=== PATIENT | female | born 1955 | race Caucasian/White ===

== ENCOUNTER 2025-09-03 11:56 | Inpatient (IN) ==
--- NOTE | 2025-09-03 12:15 | Emergency Department Note ---
Impression & Plan Occlusion of central line, Anemia ED Provider Note NAME: FÁTIMA EDWARDS AGE: 70 SEX: F : 1955 ARRIVES VIA: Ambulance INFORMANT: Patient ED PROVIDER(S): Quinn Elliott DO CHIEF COMPLAINT: line won't flush HPI: Patient is a 70-year-old female who presents to the ER with extensive past medical history who receives TPN through her central line from [facility]. 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 She comes have been having trouble with her central line and the red and purple lines will not flush and consequently cannot give her the TPN which she needs. She denies all other complaints. No headache or change in vision. No new belly pain. No nausea or vomiting. ADDITIONAL HISTORY OBTAINED: Per HPI Chronic Medical/Social Conditions Affecting Care: Per HPI PAST MEDICAL HISTORY:See Below PAST SURGICAL HISTORY:See Below FAMILY HISTORY:See Below SOCIAL HISTORY:See Below HOME MEDICATIONS:See Below ALLERGIES:See Below VITALS:See Below PHYSICAL EXAMINATION: GENERAL: Sitting up in bed, alert, morbidly obese, disheveled EYE EXAM: normal conjunctiva. PERRL and EOM's grossly intact. OROPHARYNX: n mucous membranes are moist LUNGS: Clear to auscultation. Normal chest wall mechanics CHEST: Central access and right upper chest wall HEART: no murmurs, S1 normal and S2 normal ABDOMEN: abdomen soft, non-tender, draining fistula/ostomy left mid abdomen, normo-active bowel sounds, no masses, no rebound or guarding. UPPER EXTREMITIES: upper extremities are grossly normal. LOWER EXTREMITIES: No pitting edema. NEURO EXAM: Normal sensorium, cranial nerves II-XII grossly intact, normal speech, no gross weakness of arms, no gross weakness of legs. MEDICAL DECISION MAKING: Patient is a morbidly obese 70-year-old female who presents ER referred in as she is TPN dependent and the ports are not working and they have been having trouble with them at the facility. She is unclear how long they have been in place but notes that they have been placed at [facility]. IV was established and blood work was obtained. Labs show no significant cytosis. Mild anemia at 9.7. BMP with mild hyponatremia 133. Pro-Tavo was normal. She has no belly pain. UA with 0-5 white cells but did have some epithelial cells to suggest infection. Cathflo was placed in both ports for 2 hours via IV team. Following this they are able to flush but are still sluggish. Discussed case with the hospitalist for further evaluation management treatment. Patient will need to be evaluated if this does not improve by vascular tomorrow. Consults/Care Managements Discussions: Per MDM Triage Nursing notes reviewed. Limited review of prior medical records performed Vital Signs: reviewed and remarkable for no significant abnormalities Differential diagnosis: Differential diagnoses includes but is not limited to gastritis, peptic ulcer disease, GERD, gallbladder disease, pancreatitis, small bowel obstruction, appendicitis, diverticulitis, hernia, urinary tract infection, torsion, [/ectopic (if female)], perforation, trauma, infectious. ER treatment provided: See below Diagnostics interpreted by me include EKG and cardiac monitoring as listed below: -Cardiac Monitoring: An order was placed for continuous cardiac monitoring. The monitor shows a rate of 80 with sinus rhythm. -ECG: None -Laboratory studies:Interpreted by me as stated above in MDM and shown below. Imaging studies: Xrays: As interpreted by me: Portable AP upright 1 view of the chest shows central catheter in IVC CTs show: None Procedures: None Critical Care: None Past Med/Surg History Problem List (Updated 09/03/25 @ 17:10 by Quinn Elliott DO) Anemia (Acute) Occlusion of central line (Acute) Medical History Mood disorder Paroxysmal A-fib Intra-abdominal abscess Enterocutaneous fistula HFrEF (heart failure with reduced ejection fraction) Surgical History H/O ventral hernia repair Social History Smoking Status: Never smoker Feels Safe at Home: Yes Allergies Allergies Allergy/AdvReac Type Severity Reaction Status Date / Time piperacillin [From Zosyn] Allergy Unknown Verified 09/03/25 15:59 tazobactam [From Zosyn] Allergy Unknown Verified 09/03/25 15:59 Home Meds Home Medications Medication Instructions Recorded Confirmed acetaminophen 325 mg tablet 650 mg PO Q4 PRN Mild Pain. 09/03/25 09/03/25 apixaban 5 mg tablet (Eliquis) 5 mg PO BID 09/03/25 09/03/25 famotidine 20 mg tablet 20 mg PO QAM 09/03/25 09/03/25 loperamide 2 mg capsule 4 mg PO TID 09/03/25 09/03/25 multivitamin with minerals 1 tab PO QAM 09/03/25 09/03/25 (Multiple Vitamin-Minerals tablet) octreotide acetate 100 mcg/mL 100 mcg IV TID 09/03/25 09/03/25 injection solution sertraline 100 mg tablet 100 mg PO QAM 09/03/25 09/03/25 simethicone 80 mg chewable tablet 80 mg PO Q6 PRN 09/03/25 09/03/25 indigestion/flatulence sodium 35 mEq-potassium 20 mEq-mag 2,000 ml IV .AFTERNOON 09/03/25 09/03/25 5 mEq/20 oT-ozpdqks-dxmopnq-acet IV (TPN Electrolytes) Results & Data (ED) Vital Signs Vital Signs - 24 hr 09/03/25 12:06 09/03/25 12:18 09/03/25 12:30 Temperature 36.9 C Temperature Source Oral Pulse Rate 75 71 73 Pulse Rate [Apical] Pulse Rate from SpO2 Sensor 73 Pulse Rhythm Regular Pulse Strength Normal Respiratory Rate 18 19 Respiratory Effort / Characteristics Non-Labored Respiratory Depth Normal Respiratory Pattern Regular Blood Pressure 141/76 H 141/76 H Blood Pressure [Right Arm] Blood Pressure Mean 97 97 Blood Pressure Mean [Right Arm] Blood Pressure Position Lying Pulse Oximetry 95 95 Oxygen Delivery Method Room Air Sepsis Recent Fever Within 48 Hours Yes Sepsis New/Unexplained Change in Mental Status No Sepsis Action Taken by Nursing No Action Required 09/03/25 13:00 09/03/25 13:23 09/03/25 13:30 Temperature Temperature Source Pulse Rate 70 70 Pulse Rate [Apical] Pulse Rate from SpO2 Sensor 70 70 Pulse Rhythm Pulse Strength Respiratory Rate 18 18 Respiratory Effort / Characteristics Respiratory Depth Respiratory Pattern Blood Pressure 123/75 119/58 L Blood Pressure [Right Arm] Blood Pressure Mean 91 78 Blood Pressure Mean [Right Arm] Blood Pressure Position Pulse Oximetry 98 96 95 Oxygen Delivery Method Sepsis Recent Fever Within 48 Hours Sepsis New/Unexplained Change in Mental Status Sepsis Action Taken by Nursing 09/03/25 14:00 09/03/25 15:00 09/03/25 16:08 Temperature Temperature Source Pulse Rate 74 81 Pulse Rate [Apical] 74 Pulse Rate from SpO2 Sensor 73 Pulse Rhythm Pulse Strength Respiratory Rate 19 20 Respiratory Effort / Characteristics Respiratory Depth Respiratory Pattern Blood Pressure 110/68 Blood Pressure [Right Arm] 121/78 Blood Pressure Mean 82 Blood Pressure Mean [Right Arm] 92 Blood Pressure Position Pulse Oximetry 95 96 Oxygen Delivery Method Room Air Sepsis Recent Fever Within 48 Hours Sepsis New/Unexplained Change in Mental Status Sepsis Action Taken by Nursing Laboratory Data 09/03/25 Unknown 09/03/25 Unknown Lab Results 09/03/25 09/03/25 Range/Units 16:30 Unknown WBC 5.84 (4.8-10.8) K/ul RBC 3.17 L (4.20-5.40) M/uL Hgb 9.7 L (12.0-16.0) g/dL Hct 29.1 L (37.0-47.0) % MCV 91.8 (80.0-100.0) fL MCH 30.6 (25.0-34.0) pg MCHC 33.3 (32.0-36.0) g/dL RDW Std Deviation 41.2 (36.4-46.3) fL RDW Coeff of Hedy 12.2 (11.5-14.5) % Plt Count 212 (130-400) K/uL MPV 10.3 (9.4-12.4) fL Immature Gran % (Auto) 0.2 % Neut % (Auto) 76.5 % Lymph % (Auto) 16.6 % Ware % (Auto) 5.5 % Eos % (Auto) 0.7 % Baso % (Auto) 0.5 % Neut # (Auto) 4.47 (1.40-6.50) K/uL Lymph # (Auto) 0.97 L (1.20-3.40) K/uL Ware # (Auto) 0.32 (0.11-0.59) K/uL Eos # (Auto) 0.04 (0.00-0.50) K/uL Baso # (Auto) 0.03 (0.00-0.20) K/uL Immature Gran # (Auto) 0.01 (0.01-0.20) K/uL Sodium 133 L (136-145) mmol/L Potassium 4.1 (3.5-5.1) mmol/L Chloride 100 (98-107) mmol/L Carbon Dioxide 25 (21-32) mmol/L Anion Gap 8 (3-11) BUN 56 H (6-23) mg/dl Creatinine 1.41 H (0.6-1.2) mg/dl Est Cr Clr Drug Dosing 49.7 ml/min eGFR 40.38 BUN/Creatinine Ratio 39.7 H (10-20) Glucose 94 (70-99(Fasting)) mg/dl Calcium 8.7 (8.6-10.3) mg/dl Procalcitonin 0.29 (0-0.5) ng/ml Urine Color Dark Yellow Urine Appearance Cloudy A (Clear) Urine pH 5.5 (4.5-7.5) Ur Specific Farrell 1.019 (1.000-1.030) Urine Protein 1+ H (Negative) Urine Glucose (UA) Negative (Negative) Urine Ketones Negative (Negative) Urine Blood 3+ H (Negative) Urine Nitrite Negative (Negative) Urine Bilirubin Negative (Negative) Urine Urobilinogen Negative (Negative) Ur Leukocyte Esterase 1+ H (Negative) Urine WBC (Auto) 0-5 (0-5) /hpf Urine RBC (Auto) 6-10 H (0-2) /hpf U Hyaline Cast (Auto) 0-2 (0-2) /lpf U Epithel Cells (Auto) 6-10 H (0-2) /hpf Urine Bacteria (Auto) 1+ H (None Seen) Urine Comment Administered Medications Discontinued Medications Alteplase, Recombinant (Alteplase, Recombinant 1 Mg/Ml 2ml Vial) 2 mg INSTIL ONE ONE Stop: 09/03/25 13:50 Last Admin: 09/03/25 14:20 Dose: 2 mg Documented By: WILDER Co-signed By: MALISSA Alteplase, Recombinant (Alteplase, Recombinant 1 Mg/Ml 2ml Vial) 2 mg INSTIL ONE ONE Stop: 09/03/25 13:51 Last Admin: 09/03/25 14:20 Dose: 2 mg Documented By: WILDER Co-signed By: MALISSA Imaging Data Radiologist's Impression: Chest X-Ray 09/03/25 12:09 XR chest 1V portable HISTORY: 70 years-old Female cvc placement ? Acute shortness of breath COMPARISON: None TECHNIQUE: AP view of the chest FINDINGS: Study is mildly rotated to the left. Cardiac silhouette is enlarged. Right subclavian Exhtrf-f-Qflz catheter with distal tip noted in the expected location of the mid to inferior aspect of the SVC. Pulmonary vascular congestion with mild interstitial coarsening. Mild blunting of the lateral costophrenic angles. Bones appear grossly intact. IMPRESSION: Status post placement of a right subclavian Xpbtmj-j-Lnda catheter. No postprocedural pneumothorax identified. ACT 112: Negative or not required by law. The above report was generated using voice recognition software. It may contain grammatical, syntax or spelling errors. Electronically signed by: Joshua Baxter M.D. 09/03/2025 12:37 PM Discharge Plan Visit Data Chief Complaint: Line Placement Stated Complaint: CENTRAL LINE OCCLUDED ED Provider: Quinn Elliott Discharge Problem: Occlusion of central line, Anemia Condition: Fair Forms Stand Alone Forms: [facility] Prescriptions Prescriptions: No Action sertraline 100 mg tablet 100 mg PO QAM famotidine 20 mg tablet 20 mg PO QAM Eliquis 5 mg tablet 5 mg PO BID octreotide acetate 100 mcg/mL solution 100 mcg IV TID loperamide 2 mg capsule 4 mg PO TID acetaminophen 325 mg Tablet 650 mg PO Q4 MDD 3g PRN (Reason: Mild Pain.) Multiple Vitamin-Minerals Tablet 1 tab PO QAM simethicone 80 mg Tablet,Chewable 80 mg PO Q6 PRN (Reason: indigestion/flatulence) TPN Electrolytes 35-20-5 mEq/20 mL Solution 2,000 ml IV .AFTERNOON Rx Instructions: Start rate 58.82 ml/hr for 1 hour. Increase rate to 117.65 ml/hr for 16 hours. Then decrease rate to 58.82 ml/hr. change administration set and filter every 24 hours with bag change. Filter 1.2 micron (with lipids) Referrals Referrals: Vernell Coats [Non-Staff] - Discharge Problem: Occlusion of central line Qualifiers: Encounter type: initial encounter Qualified Code(s): T82.594A - Other mechanical complication of infusion catheter, initial encounter Anemia Qualifiers: Anemia type: unspecified type Qualified Code(s): D64.9 - Anemia, unspecified
--- NOTE | 2025-09-03 12:39 | XRay Report ---
XR chest 1V portable HISTORY: 70 years-old Female cvc placement ? Acute shortness of breath COMPARISON: None TECHNIQUE: AP view of the chest FINDINGS: Study is mildly rotated to the left. Cardiac silhouette is enlarged. Right subclavian Pytazc-v-Igym c atheter with distal tip noted in the expected location of the mid to inferior aspect of the SVC. Pulm onary vascular congestion with mild interstitial coarsening. Mild blunting of the lateral costophreni c angles. Bones appear grossly intact. IMPRESSION: Status post placement of a right subclavian Iaoqkf-y-Kscy catheter. No postprocedural pne umothorax identified. ACT 112: Negative or not required by law. The above report was generated using voice recognition software. It may contain grammatical, syntax o r spelling errors. Electronically signed by: Joshua Baxter M.D. 09/03/2025 12:37 PM
[2025-09-03 13:16] LABS: Hematocrit (blood only) 29.1 % (37.0-47.0); Hemoglobin 9.7 g/dL (12.0-16.0); Immature Granulocytes # (auto) 0.01 K/uL (0.01-0.20); Immature Granulocytes % (auto) 0.2 %; Mean Corpuscular Hemoglobin 30.6 pg (25.0-34.0); Mean Corpuscular Volume 91.8 fL (80.0-100.0); Platelet Count 212 K/uL (130-400); RDW Standard Deviation 41.2 fL (36.4-46.3); Red Blood Count 3.17 M/uL (4.20-5.40); White Blood Count 5.84 K/ul (4.8-10.8)
[2025-09-03 13:33] LABS: Anion Gap 8.0 (3-11); Blood Urea Nitrogen 56.0 mg/dl (6-23); Calcium 8.7 mg/dl (8.6-10.3); Carbon Dioxide 25.0 mmol/L (21-32); Chloride 100.0 mmol/L (98-107); Creatinine Clr Calc Pharmacy 49.7 ml/min; Glucose 94.0 mg/dl (70-99(Fasting)); Potassium 4.1 mmol/L (3.5-5.1); Sodium 133.0 mmol/L (136-145)
[2025-09-03] MEDS: ALTEPLASE, RECOMBINANT 1 MG/ML 2ML VIAL INSTIL ONE ×2 (14:20)
--- NOTE | 2025-09-03 16:04 | History & Physical Report ---
Date of Service September 03, 2025 Assessment & Plan (1) Occlusion of central line: Plan: This is a 70yo F with PMH of HFrEF, paroxysmal A fib on Eliquis, CKD III, h/o ventral hernia repair in December 2024 at outside hospital complicated by small bowel perforation, intraabdominal abscess with wound dehiscence and enterocutaneous fistula on TPN, mood disorder and other medical problems listed below who was sent in from [facility] due to occluded central line. Hemodynamically stable, IV team unable to flush line in ED ED discussed with vascular surgery who will see patient tomorrow for possible port exchange Continue clear liquids for now, gentle fluids, NPO at midnight (2) Intra-abdominal abscess: (3) Enterocutaneous fistula: Plan: Complex surgical history starting with ventral hernia repair in December in December 2024 at outside hospital complicated by small bowel perforation, intraabdominal abscess with wound dehiscence and enterocutaneous fistula on TPN Discussed with [facility], who will evaluate leaking ostomy dressing Follow stool cultures, c diff given increased GI output, low grade fever at [facility] Continue empiric Cefepime, flagyl for now, follow blood culture Recently seen by [facility] [place] - last seen 08/07/25 for management of enterocutaneous fistula. Discussed surgical repair but due to present condition, body habitus and deconditioned state, would want to optimize physician condition before considering further surgery and optimized nutritional state (4) HFrEF (heart failure with reduced ejection fraction): Plan: Appears euvolemic, echo unavailable and not on cardiac meds per review (5) Paroxysmal A-fib: Plan: Rate controlled, beta jie discontinued at [facility]. Hold Eliquis this evening for possible OR tomorrow (6) Mood disorder: Plan: Continue Sertraline DVT Ppx: Eliquis Code status: FULL PCP: Beth Dispo: Admitted to [facility] Patient seen in collaboration with Dr. Abbasi. Please see addendum. I spent a total of 75 minutes coordinating, documenting, and providing care for this patient excluding time spent in the performance of separately billed services or time spent by another provider/QHP. History of Present Illness Chief Complaint: central line problem Primary Care Provider: Charisse Campos MD This is a 70yo F with PMH of HFrEF, paroxysmal A fib on Eliquis, CKD III, h/o ventral hernia repair in December 2024 at outside hospital complicated by small bowel perforation, intraabdominal abscess with wound dehiscence and enterocutaneous fistula on TPN, mood disorder and other medical problems listed below who was sent in from [facility] due to occluded central line. Patient became nauseated last evening and had one vomiting episode. Also endorses a low grade fever last evening. Ostomy site is leaking some, which is new. Tolerates clear liquids and then has additional nutritional support with TPN but staff at [facility] has been having difficulty administering PTN but to clotting of line. No lightheadedness, headache, CP, SOB, abd pain, dysuria. Took AM meds without issue. Patient now following with [facility] - last seen 08/07/25 for management of enterocutaneous fistula. Discussed surgical repair but due to present condition, body habitus and deconditioned state, would want to optimize physician condition before considering further surgery and optimized nutritional state. Allergies Allergy/AdvReac Type Severity Reaction Status Date / Time piperacillin [From Zosyn] Allergy Unknown Verified 09/03/25 15:59 tazobactam [From Zosyn] Allergy Unknown Verified 09/03/25 15:59 Home Medications Medication Instructions Recorded Confirmed Type acetaminophen 325 mg tablet 650 mg PO Q4 PRN Mild Pain. 09/03/25 09/03/25 History apixaban 5 mg tablet (Eliquis) 5 mg PO BID 09/03/25 09/03/25 History famotidine 20 mg tablet 20 mg PO QAM 09/03/25 09/03/25 History loperamide 2 mg capsule 4 mg PO TID 09/03/25 09/03/25 History multivitamin with minerals 1 tab PO QAM 09/03/25 09/03/25 History (Multiple Vitamin-Minerals tablet) octreotide acetate 100 mcg/mL 100 mcg IV TID 09/03/25 09/03/25 History injection solution sertraline 100 mg tablet 100 mg PO QAM 09/03/25 09/03/25 History simethicone 80 mg chewable tablet 80 mg PO Q6 PRN 09/03/25 09/03/25 History indigestion/flatulence sodium 35 mEq-potassium 20 mEq-mag 2,000 ml IV .AFTERNOON 09/03/25 09/03/25 History 5 mEq/20 lR-xuajjvg-fdtlddp-acet IV (TPN Electrolytes) Past Med/Surg History Problem List (Updated 09/03/25 @ 17:10 by Quinn Elliott DO) Anemia (Acute) Occlusion of central line (Acute) Medical History Mood disorder Paroxysmal A-fib Intra-abdominal abscess Enterocutaneous fistula HFrEF (heart failure with reduced ejection fraction) Surgical History H/O ventral hernia repair Social History Smoking Status: Never smoker Feels Safe at Home: Yes Review of Systems Review of Systems: At least ten systems reviewed and negative except as noted in the HPI. Physical Exam Physical Exam: Please see Dr. Abbasi's addendum for physical exam. Results & Data Results & Data Vital Signs (Past 12 Hours) Vital Signs Temp Pulse Pulse Resp BP BP Pulse Ox 09/03/25 15:00 74 20 121/78 96 09/03/25 14:00 74 19 110/68 95 09/03/25 13:30 70 18 119/58 L 95 09/03/25 13:23 96 09/03/25 13:00 70 18 123/75 98 09/03/25 12:30 73 19 141/76 H 95 09/03/25 12:18 71 09/03/25 12:06 36.9 C 75 18 141/76 H 95 O2 Del Method 09/03/25 15:00 Room Air 09/03/25 14:00 09/03/25 13:30 09/03/25 13:23 09/03/25 13:00 09/03/25 12:30 09/03/25 12:18 09/03/25 12:06 Room Air Laboratory Results Short CBC 09/03/25 Range/Units Unknown WBC 5.84 (4.8-10.8) K/ul Hgb 9.7 L (12.0-16.0) g/dL Hct 29.1 L (37.0-47.0) % Plt Count 212 (130-400) K/uL BMP 09/03/25 Unknown Sodium 133 L Potassium 4.1 Chloride 100 Carbon Dioxide 25 BUN 56 H Creatinine 1.41 H Glucose 94 Calcium 8.7 Supervising Physician Co-Signing Physician Notes Patient is a 70-year-old female with history of systolic heart failure, paroxysmal atrial fibrillation on Eliquis, CKD stage III and other medical problems who had ventral hernia repair in December which resulted in complications with bowel perforation, intra-abdominal abscess, wound dehiscence, enterocutaneous fistula currently on TPN presents from nursing home facility for occluded port. Patient admits to have nausea and low-grade fever overnight but currently denies any symptoms. Noted ostomy site leaking. Denies any abdominal pain, chest pain, dyspnea, dizziness. Failed Cathflo use while in ED. Please review HPI for complete details of presentation. I personally reviewed blood work and imaging studies. Noted normocytic anemia, sodium 133, BUN 56, creatinine 1.4, normal procalcitonin. Urinalysis showed positive leukocyte esterase, 1+ bacteria. Physical Exam: Vitals signs as noted above General Appearance: Morbidly obese, no apparent distress Head: normocephalic, Atraumatic Eyes: normal inspection, EOMI Neck: supple, Trachea midline Respiratory/Chest: Normal breath sounds, CTA, No accessory muscle use, + Right chest port Cardiovascular: S1, S2, No murmur Abdomen/GI:Soft, Non tender, Bowel sounds present,+ draining fistula/ostomy, no guarding or rigidity Extremities/Musculoskeletal:normal inspection, 1-2+ edema, chronic venous stasis changes Neurologic/Psych:AAOX3, grossly no focal neurological deficits Skin: normal color, warm Port occlusion Low-grade fever rule out port infection Consulted vascular surgery NPO after midnight Blood cultures obtain Empirically started on cefepime, Flagyl Check stool studies to rule out infection Monitor sodium, renal function Gentle IV fluids Resume TPN as able Hold Eliquis for possible port exchange tomorrow I personally interviewed and examined the patient at bedside. I have reviewed the advanced practitioner's documentation on the date of service referred in note and agree with plan. Patient's care is coordinated with Agustina Abdi PA-C. Please refer to the documentation above for details of patient's presentation a nd for discussion of other issues. I spent a total [id number] coordinating, documenting, and providing care for this patient excluding time spent in the performance of separately billed services or time spent by another provider/QHP.
[2025-09-03 16:40] LABS: Appearance Urine Cloudy (Clear); Bacteria Urine Automated 1+ (None Seen); Cast Urine Automated 0-2 /lpf (0-2); Glucose Urine UA Negative (Negative); WBC Urine Automated 0-5 /hpf (0-5)
[2025-09-03] MEDS: metroNIDAZOLE 500 MG/100 ML BAG IV STA (17:57)
[2025-09-03] MEDS: CEFEPIME 2000MG 2,000 MG/20 ML SYR IV STA (17:58)
[2025-09-03] MEDS ORDERED: SIMETHICONE 80 MG CHEW PO PRN (19:16)
[2025-09-03 20:24] LABS: Cdiff Toxin B Gene (2yr or >) Negative Cdiff Gene (Neg)
[2025-09-03] MEDS: ONDANSETRON INJ 2 MG/ML 2 ML VIAL IV PRN (20:36)
[2025-09-03] MEDS: SODIUM CHLORIDE 0.9% 1,000 ML IV SCH (20:38)
[2025-09-03] MEDS: ACETAMINOPHEN 325 MG TAB PO PRN (20:45)
[2025-09-03] MEDS: METOPROLOL SUCC 25MG EXT REL TAB PO SCH (20:53)
[2025-09-03 20:54] LABS: Adenovirus F 40/41 PCR Not Detected (NotDetected); Campylobacter PCR Not Detected (NotDetected); Enteroaggregative E.coli(EAEC) Not Detected (NotDetected); Shiga-like Toxin E.coli (STEC) Not Detected (NotDetected); Vibrio species PCR Not Detected (NotDetected)
[2025-09-03] MEDS ORDERED: OCTREOTIDE ACETATE 100 MCG/ML VIAL IV SCH (21:00)
[2025-09-03] MEDS: LOPERAMIDE HCL 2 MG CAP PO SCH (21:53)
[2025-09-03] MEDS: OCTREOTIDE ACETATE 100 MCG in SYRINGE 9 ML IV SCH (21:54)
[2025-09-04] MEDS: metroNIDAZOLE 500 MG/100 ML BAG IV SCH (02:36)
[2025-09-04] MEDS: CEFEPIME 2000MG 2,000 MG/20 ML SYR IV SCH (05:33)
[2025-09-04 06:30] LABS: A calco-baum cmplx NotReported Not Detected (NotDetected); Bact fragilis Not Reported Not Detected (NotDetected); Blood Culture Id Panel PCR Panel Negative (NotDetected); C auris Not Reported Not Detected (NotDetected); Calbicans Not Reported Not Detected (NotDetected); Candida glabrata Not Reported Not Detected (NotDetected); Candida krusei Not Reported Not Detected (NotDetected); Cneoformans/gatti Not Reported Not Detected (NotDetected); Cparapsilosis Not Reported Not Detected (NotDetected); Ctropicalis Not Reported Not Detected (NotDetected); E cloacae compx Not Reported Not Detected (NotDetected); Efaecalis Not Reported Not Detected (NotDetected); Efaecium Not Reported Not Detected (NotDetected); Enterobacterales Not Reported Not Detected (NotDetected); Escherichia coli Not Reported Not Detected (NotDetected); H influenzae Not Reported Not Detected (NotDetected); K aerogenes Not Reported Not Detected (NotDetected); Koxytoca Not Reported Not Detected (NotDetected); Kpneumoniae grp Not Reported Not Detected (NotDetected); Lmonocyt Not Reported Not Detected (NotDetected); N meningitidis Not Reported Not Detected (NotDetected); P aeruginosa Not Reported Not Detected (NotDetected); Proteus spp Not Reported Not Detected (NotDetected); Salmonella spp Not Reported Not Detected (NotDetected); Staph lugdunensis Not Reported Not Detected (NotDetected); Staph spp. Not Reported Not Detected (NotDetected); Staphaureus Not Reported Not Detected (NotDetected); Staphepi Not Reported Not Detected (NotDetected); Stenmaltophilia Not Reported Not Detected (NotDetected); Strep agal(GrpB) Not Reported Not Detected (NotDetected); Strep pneum Not Reported Not Detected (NotDetected); Strep pyog (GrpA) Not Reported Not Detected (NotDetected); Strep spp Not Reported Not Detected (NotDetected)
[2025-09-04 07:01] LABS: Hematocrit (blood only) 24.4 % (37.0-47.0); Hemoglobin 8.2 g/dL (12.0-16.0); Immature Granulocytes # (auto) 0.06 K/uL (0.01-0.20); Immature Granulocytes % (auto) 0.4 %; Mean Corpuscular Hemoglobin 31.3 pg (25.0-34.0); Mean Corpuscular Volume 93.1 fL (80.0-100.0); Platelet Count 165 K/uL (130-400); RDW Standard Deviation 41.9 fL (36.4-46.3); Red Blood Count 2.62 M/uL (4.20-5.40); White Blood Count 14.12 K/ul (4.8-10.8)
[2025-09-04 07:35] LABS: Alanine Aminotransferase 16.0 U/L (7-52); Albumin Globulin Ratio 0.5 (0.9-2); Albumin Level 2.6 gm/dl (3.4-5.0); Alkaline Phosphatase 56.0 U/L (34-104); Anion Gap 7.0 (3-11); Bilirubin,Total 1.0 mg/dl (0.2-1.0); Blood Urea Nitrogen 60.0 mg/dl (6-23); Calcium 8.0 mg/dl (8.6-10.3); Carbon Dioxide 25.0 mmol/L (21-32); Chloride 102.0 mmol/L (98-107); Creatinine Clr Calc Pharmacy 35.3 ml/min; Globulin 5.0 gm/dl (2.5-4.0); Glucose 118.0 mg/dl (70-99(Fasting)); Magnesium 1.8 mg/dl (1.7-2.4); Potassium 4.2 mmol/L (3.5-5.1); Sodium 134.0 mmol/L (136-145); Total Protein 7.6 gm/dl (6.0-8.3)
[2025-09-04] MEDS ORDERED: VANCOMYCIN CONSULT ACTIVE PRN (07:53)
[2025-09-04] MEDS ORDERED: DEXTROSE 10% 1,000 ML IV PRN (08:45)
--- NOTE | 2025-09-04 09:04 | Hospitalist Progress Note ---
Date of Service September 04, 2025 Assessment & Plan (1) Gram-positive bacteremia: (2) CLABSI (central line-associated bloodstream infection): Plan: Present on admission (3) Occlusion of central line: (4) Acute renal failure superimposed on stage 3 chronic kidney disease: (5) Acute on chronic anemia: (6) Enterocutaneous fistula: (7) Chronic HFrEF (heart failure with reduced ejection fraction): (8) Paroxysmal A-fib: (9) Mood disorder: (10) NSVT (nonsustained ventricular tachycardia): Plan Patient 70-year-old female presented with occluded central line. Central line required for TPN due to the fact patient had abdominal abscesses and enterocutaneous fistula. Now with positive blood cultures concerning for bacteremia and central line associated bloodstream infection due to her central line that is present on admission Continue cefepime, add vancomycin with positive MRSA screen. Pharmacy consultation for additional vancomycin dosing Consult pharmacy for PPN Vascular surgery updated to bacteremia. Anticipate central line will need to be removed. New central line may not be able to be replaced immediately until blood cultures are clear. Will plan to remove line tomorrow Consult infectious disease for gram-positive bacteremia in the setting of central line Repeat blood cultures after line is removed Monitor hemoglobin Continue other medications as prescribed Increase IV fluids due to acute kidney injury, monitoring for volume overload Monitor electrolytes and renal function No further runs of ventricular tachycardia. Continue beta-jie Admission and Anticipated Discharge Date Admission Date: September 04, 2025 Subjective No acute issues overnight. Patient denies any fever or chills. No increase in pain. Physical Exam Physical Exam: Constitutional: Alert, nontoxic, obese HEENT: Mucous membranes moist. Lungs: Decreased breath sounds CV: S1-S2, regular Abdomen: Soft, mild tenderness, ostomy bag, no distention, no guarding, Extremities: No significant edema Neuro: No focal deficits generally weak Psych: Cooperative, normal mood Results & Data Results & Data Vital Signs (Past 12 Hours) Vital Signs Temp Pulse Pulse Pulse Resp BP Pulse Ox 09/04/25 08:07 36.6 C 66 18 108/61 97 09/04/25 04:00 36.6 C 70 18 131/69 93 09/03/25 23:24 37.1 C 95 H 18 107/65 91 09/03/25 22:00 107 H 09/03/25 21:45 37.7 C H 112 H 16 95/61 L 93 12/02/25 21:05 37.4 C 118 H 20 123/89 92 O2 Del Method 09/04/25 08:07 Room Air 09/04/25 04:00 Room Air 09/03/25 23:24 Room Air 09/03/25 22:00 09/03/25 21:45 Room Air 09/03/25 21:05 Room Air Diagnostic Findings Reviewed imaging, laboratory and diagnostic studies. Pertinent findings as below. WBCs 14.1 Hemoglobin 8.2 Sodium 134 Potassium 4.2 Creatinine 1.9, increased MRSA nasal screen positive Stool negative for C. difficile or other enterotoxins Blood culture ID PCR negative Preliminary blood cultures growing gram-positive cocci in chains (3) Occlusion of central line Encounter type: initial encounter Qualified Code(s): T82.594A - Other mechanical complication of infusion catheter, initial encounter
[2025-09-04] MEDS ORDERED: TPN/PPN CONSULT PHARMACY PRN (09:06)
--- NOTE | 2025-09-04 09:41 | Pharmacy Report ---
Pharmacy PK ABX Note - Date of Service September 04, 2025 - Assessment and Plan Assessment 70 year old F receiving vancomycin/cefepime empirically. Presenting with occluded central line, now with positive blood cultures. 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 Anticipate central line needing to be replaced. ID consulted. Blood cultures preliminary with Gm+ cocci in chains/PCR negative - will await further identification. Plan Vancomycin * Loading dose: 2250 mg IV x 1 * Scr trending upward 1.4 to 1.9 mg/dL - will dose based upon levels due to rapidly changing renal function * Estimated t1/2>20 hours - anticipate level to remain therapeutic until tomorrow AM * Will order a random vancomycin level tomorrow AM to assist with further dosing. Pharmacy will continue to follow and will adjust dose/frequency as necessary. Thank you. Pharmacy has transitioned to AUC monitoring for vancomycin. AUC/NAEEM is the preferred PK/PD target and is associated with decreased risk of nephrotoxicity compared to traditional trough targets.
--- NOTE | 2025-09-04 09:53 | Consultation ---
Date of Consultation September 04, 2025 Assessment & Plan (1) Gram-positive bacteremia: Pt with positive blood cultures and poorly functioning smith catheter. ED used cathflow yesterday and was able to get 1 lumen to function. After discussion with Dr Durbin, planning on smith catheter removal in OR tomorrow. Procedure, risks, benefits, and alternatives discussed with pt by myself at Dr Durbin's request. Can replace at later date when negative blood cultures obtained. Apixaban has been held since last evening, continue to hold until after removal tomorrow. Will order a venous US of her BL IJ to ensure patentcy. History of Present Illness Reason for Consultation: bacteremia, poor functioning smith Attending Physician: Luca Estrada, History of Present Illness 70 yo f with hx of CKD, anemia, a fib on eliquis, CHF, enterostomy, and abd abscess with enterocutaneous fistula, admitted with poorly functioning R IJ smith catheter and found to have bacteremia, seen in consultation today for removal of catheter and placement of new line. Pt states she has been at a halfway, but had her previous surgeries at [facility] and [facility]. Pt is a poor historian, unsure how long ago her surgeries were or when her line was placed. Uses her smith catheter for TPN administration, but states they have not been able to access it for a few days. States she had a fever a few days ago, but none since. Admits some occasional nausea, but states is resolved currently. Has not been ambulating since arriving at SNF. Denies STARK, chest pain, cough, SOB, abd pain, rest pain, nonhealing ulcers of feet, other complaints. Blood cultures taken yesterday upon arrival positive for G+ cocci Allergies Allergy/AdvReac Type Severity Reaction Status Date / Time piperacillin [From Zosyn] Allergy Unknown Verified 09/03/25 15:59 tazobactam [From Zosyn] Allergy Unknown Verified 09/03/25 15:59 Home Medications Medication Instructions Recorded Confirmed Type acetaminophen 325 mg tablet 650 mg PO Q4 PRN Mild Pain. 09/03/25 09/03/25 History apixaban 5 mg tablet (Eliquis) 5 mg PO BID 09/03/25 09/03/25 History famotidine 20 mg tablet 20 mg PO QAM 09/03/25 09/03/25 History loperamide 2 mg capsule 4 mg PO TID 09/03/25 09/03/25 History multivitamin with minerals 1 tab PO QAM 09/03/25 09/03/25 History (Multiple Vitamin-Minerals tablet) octreotide acetate 100 mcg/mL 100 mcg IV TID 09/03/25 09/03/25 History injection solution sertraline 100 mg tablet 100 mg PO QAM 09/03/25 09/03/25 History simethicone 80 mg chewable tablet 80 mg PO Q6 PRN 09/03/25 09/03/25 History indigestion/flatulence sodium 35 mEq-potassium 20 mEq-mag 2,000 ml IV .AFTERNOON 09/03/25 09/03/25 History 5 mEq/20 uC-yhgtfcq-jigcnnd-acet IV (TPN Electrolytes) Patient History Medical History Mood disorder Paroxysmal A-fib Intra-abdominal abscess Enterocutaneous fistula HFrEF (heart failure with reduced ejection fraction) Surgical History H/O ventral hernia repair Social History Smoking Status: Never smoker Hx Alcohol Use: No Hx Substance Use: No Preferred Language: Persian Communication Ability: Effective Lamp Developer Required: No Current Living Situation: Personal Care Facility Other Information That Helps Us Care for You: No Feels Safe at Home: Yes Safety Concerns: Feels Safe At This Time Assistive Devices: Glasses and Hospital Bed Review of Systems Review of Systems: All systems reviewed & are unremarkable except as noted in HPI & below Physical Exam Constitutional: WD/WN, vitals as above + morbidly obese, cooperative and comfortable; not in distress Respiratory: normal respiratory effort, lungs clear to auscultation Auscultation: + diminished lung sounds Cardiovascular: Rate/Rhythm: regular rate and regular rhythm Vessels: posterior tibial pulses present and dorsalis pedis pulses present; + abnormal peripheral pulses Extremities: normal capillary refill; no edema Gastrointestinal (Abdomen): Inspection/Auscultation: + abdomen abnormal to inspection (ostomy noted, enterocutaneous fistula noted.) Percussion/Palpation: abdomen soft; abdomen nontender Musculoskeletal: Extremities: extremities normal to inspection Skin: no rashes, warm and dry Neurologic: moves all extremities and awake; no focal motor deficits and not confused (very mild, poor historian) Psychiatric: Orientation: alert and oriented x 3 Affect: + flat affect Results & Data Vital Signs (Past 12 Hours) Vital Signs Temp Pulse Pulse Pulse Resp BP Pulse Ox 09/04/25 08:07 36.6 C 66 18 108/61 97 09/04/25 04:00 36.6 C 70 18 131/69 93 09/03/25 23:24 37.1 C 95 H 18 107/65 91 09/03/25 22:00 107 H O2 Del Method 09/04/25 08:07 Room Air 09/04/25 04:00 Room Air 09/03/25 23:24 Room Air 09/03/25 22:00
[2025-09-04] MEDS: CEROVITE ADV FORMULA TAB PO SCH (10:46)
[2025-09-04] MEDS: FAMOTIDINE 20 MG TAB PO SCH (10:46)
[2025-09-04] MEDS: SERTRALINE HCL 100 MG TABLET PO SCH (10:46)
--- NOTE | 2025-09-04 11:42 | XCELERA ---
[id number] [id number]
--- NOTE | 2025-09-04 11:58 | Ultrasound Report ---
US venous doppler UE BI CLINICAL HISTORY: previous central lines, eval BL IJ for patentcy COMPARISON STUDY: No previous studies for comparison. FINDINGS: The study was limited to the evaluation of the internal jugular veins bilaterally. No intra luminal thrombus was visualized. Both internal jugular veins are fully compressible. There is normal color flow signal. IMPRESSION: 1. Both internal jugular veins appeared patent. ACT 112: Negative or not required by law. Electronically signed by: Fausto Alcazar M.D. 09/04/2025 11:56 AM
[2025-09-04] MEDS: VANCOMYCIN HCL 2,250 MG in SODIUM CHLORIDE 0.9% 500 ML IV ONE (12:07)
[2025-09-04] MEDS: diphenhydrAMINE 50 MG/ML VIAL IV STA ×2 (21:43→23:14)
[2025-09-05] MEDS: AZTREONAM 2,000 MG in DEXTROSE 5% MINI-B 100 ML IV SCH (02:17)
[2025-09-05 06:27] LABS: Hematocrit (blood only) 27.4 % (37.0-47.0); Hemoglobin 9.3 g/dL (12.0-16.0); Mean Corpuscular Hemoglobin 31.7 pg (25.0-34.0); Mean Corpuscular Volume 93.5 fL (80.0-100.0); Platelet Count 165 K/uL (130-400); RDW Standard Deviation 42.1 fL (36.4-46.3); Red Blood Count 2.93 M/uL (4.20-5.40); White Blood Count 6.52 K/ul (4.8-10.8)
[2025-09-05 07:09] LABS: Anion Gap 7.0 (3-11); Blood Urea Nitrogen 53.0 mg/dl (6-23); Calcium 7.9 mg/dl (8.6-10.3); Carbon Dioxide 22.0 mmol/L (21-32); Chloride 108.0 mmol/L (98-107); Creatinine Clr Calc Pharmacy 36.0 ml/min; Glucose 87.0 mg/dl (70-99(Fasting)); Magnesium 1.8 mg/dl (1.7-2.4); Potassium 3.8 mmol/L (3.5-5.1); Sodium 137.0 mmol/L (136-145)
--- NOTE | 2025-09-05 07:45 | History & Physical Bridge Note ---
Date of Service September 05, 2025 History & Physical Bridge Note I have examined the patient, reviewed the History & Physical and in the interval since the performance of the History & Physical I have noted the following changes of clinical significance: no changes noted
[2025-09-05] MEDS: diphenhydrAMINE 50 MG/ML VIAL IV STA (08:04)
[2025-09-05] MEDS: diphenhydrAMINE 50 MG/ML VIAL ONE (08:09)
[2025-09-05] MEDS: MIDAZOLAM HCL 1 MG/ML 2ML VIAL ONE (08:15)
--- NOTE | 2025-09-05 08:15 | Pre Anesthesia Assessment ---
Date of Service September 05, 2025 Pre Sedation Assessment Vital Signs Temp Pulse Resp BP BP Pulse Ox O2 Del Method 09/05/25 08:05 36.5 C 71 18 130/66 97 Room Air 09/05/25 07:40 36.5 C 68 20 116/61 96 Room Air 09/04/25 22:51 36.5 C 65 18 122/65 95 Room Air 09/04/25 20:00 36.5 C 70 14 99/60 L 98 Room Air 09/04/25 19:20 Room Air 09/04/25 16:02 36.6 C 61 18 94/57 L 96 Room Air 09/04/25 11:46 36.5 C 63 18 107/61 96 Room Air 09/04/25 08:30 Room Air Cardiovascular RRR, no murmur, no edema Respiratory normal respiratory effort, lungs clear to auscultation Pre-Sedation Airway Assessment Smoking Status: Never smoker Hx Sleep Apnea: No Short, Thick Neck: Yes Thyromental Distance: < 3.5 Finger Breadths Oral Cavity: + WNL Mallampati Class: III ASA: ASA3 NPO Status Date of Last Intake of Fluids: 09/04/25 Time of Last Intake of Fluids: 23:00 Date of Last Intake of Solid Food: 09/04/25 Time of Last Intake of Solid Foods: 23:00 Procedure Planning Contraindications for Sedation: none Current Medications Reviewed: Yes Notes The planned sedation has been discussed with the patient. Informed Consent was obtained. I have identified the patient, determined the appropriateness of sedation and have assessed the patient immediately prior to the procedure. All medicine(s) and interventions are by my order.
[2025-09-05] MEDS: LIDOCAINE 1% LOCAL 20 ML VIAL ONE (08:19)
--- NOTE | 2025-09-05 08:27 | Post Anesthesia Assessment ---
Date of Service September 05, 2025 Post Sedation Assessment Vital Signs Temp Pulse Pulse Resp BP BP Pulse Ox 09/05/25 08:25 64 16 98/55 L 100 09/05/25 08:20 62 16 118/51 L 100 09/05/25 08:15 58 L 16 110/60 100 09/05/25 08:13 61 16 112/59 L 100 09/05/25 08:05 36.5 C 71 18 130/66 97 09/05/25 07:40 36.5 C 68 20 116/61 96 09/04/25 22:51 36.5 C 65 18 122/65 95 09/04/25 20:00 36.5 C 70 14 99/60 L 98 09/04/25 19:20 09/04/25 16:02 36.6 C 61 18 94/57 L 96 09/04/25 11:46 36.5 C 63 18 107/61 96 09/04/25 08:30 O2 Del Method O2 Flow Rate 09/05/25 08:25 Room Air 0 09/05/25 08:20 Room Air 0 09/05/25 08:15 Oxymask 4 09/05/25 08:13 Oxymask 4 09/05/25 08:05 Room Air 09/05/25 07:40 Room Air 09/04/25 22:51 Room Air 09/04/25 20:00 Room Air 09/04/25 19:20 Room Air 09/04/25 16:02 Room Air 09/04/25 11:46 Room Air 09/04/25 08:30 Room Air Recovery Score Activity: Moves 4 extremities Respiration: Deep Breath/Cough Circulation: +/-20% PreAnes Value Consciousness: Fully Awake Oxygen Saturation: > 92% On Room Air Post Anesthesia Score: 10 Discharge Sedation Level of Care: Fast Track Phase II Post Sedation Plan On clinical assessment, the patient appears to have tolerated the sedation without complications. Patient is recovering as anticipated. Patient will continue to be monitored by nursing and may be discharged when sedation discharge criteria are met per below protocol. Upon Completions of procedure up to 15 minutes continue every 5 minute vital signs and the P.A.R. score; then discharge to a Phase I or Fast Track to Phase II per the following guidelines: * Discharge Patient to appropriate Phase II area if PAR is 8 or greater or return to pre- procedure baseline. The post - procedure orders will be as directed. * If PAR score is less than 8 or not return to pre-procedure baseline then patient will follow Phase I monitoring till PAR is reached for Phase II. The Phase I may be done in procedure room or may call to secure a Phase I area. * If naloxone or flumazenil are used for reversal, hold in Phase I for continued monitoring from when last reversal dose was given for a minimum of 60 minutes or longer pending the nurse and/or physician discretion of patient condition before discharge to Phase II. Please call the Sedation Physician to re-evaluate and complete post-note for discharge to Phase II area. Do NOT discharge from procedure sedation or Phase 1 until post- sedation evaluation note is complete by procedure /sedation MD Sedation Discharge Instructions to be given to the patient at discharge to home.
--- NOTE | 2025-09-05 08:40 | Operative Report ---
Post Operative Report Pre & Post Diagnosis Operation Date: 09/05/25 10:20 Pre Op Dx: Infected corral Post Op Dx: Infected corral I identified the patient and participated in the time-out.: Yes Procedure Operation Date: 09/05/25 10:20 Removal of corral, Conscious sedation ([id number]) Surgeon Matthew Durbin MD Paper Machine Operator none Estimated Blood Loss 0 Findings Consistent with Post-Op Diagnosis Specimens none Anesthesia Type RN Sedation Complications none Disposition Accompanied Patient To Recovery: No Disposition: Recovery Room Indications Patient with an infected Corral. Recommended removal. I have discussed the risks options and benefits of the procedure with the patient. The patient understands the risks options and benefits and agrees to the procedure. Description of Procedure The patient was taken to the angio suite and placed in the supine position. The patient was identified and a timeout performed. The right side of the neck, chest wall and catheter were prepped and draped in a sterile manner. Local anesthesia was then accomplished. Using blunt dissection, the cuff of the hickaman was freed up from the surrounding fibrous tissue. The corral and cuff were completely removed. Pressure was then applied and adequate hemostasis was obtained. A sterile dressing was then applied. The patient left the operation room in satisfactory condition and tolerated the procedure well. All needle and sponge counts were correct at the end of the procedure. I attest to the content of the Intraoperative Record and any orders documented therein. Any exceptions are noted below.
[2025-09-05] MEDS: VANCOMYCIN 750 MG in SODIUM CHLORIDE 0.9% 250 ML IV ONE (09:54)
--- NOTE | 2025-09-05 10:18 | Infectious Disease Consult ---
Date of Service September 05, 2025 Telehealth Information I performed this visit using a real-time telehealth connection between my location and the patients location ([facility]). After connecting through interactive tele-video, patient was identified by name and date of and/or wristband check.Patient (or authorized healthcare jewelry sales representative) was informed that this was a telemedicine visit and it was being conducted confidentially over secure lines. My office door was closed and no one else was present in the room with me.Patient (or authorized healthcare jewelry sales representative) provided consent to proceed with the visit, expressed an understanding of privacy and security of the telemedicine visit, and gave permission to have a hospital jewelry sales representative in the room in order to assist with the visit and to conduct portions of the visit, as needed. I informed the patient (or authorized healthcare jewelry sales representative) that I reviewed their record and presented the opportunity for them to ask any questions regarding the visit today. The patient agreed to participate. Line Bacteremia Assessment & Plan (1) CLABSI (central line-associated bloodstream infection): Plan: Central line removed (2) Infection due to Enterococcus: Plan: switch to vancomycin Plan Recommend discontinuing aztreonam and switching to vancomycin pending susceptibilities of her blood culture .Her central line has been removed and her TTE did not reveal any vegetation. Recommend following up repeat blood cultures .Thank you for allowing us to participate in the care of this patient ID will continue to follow History of Present Illness History of Present Illness 70 y/o F PMHx of HFrEF, paroxysmal A fib on Eliquis, CKD III, h/o ventral hernia repair in December 2024 at outside hospital complicated by small bowel perforation, intraabdominal abscess with wound dehiscence and enterocutaneous fistula on TPN, mood disorder who was sent in from [facility] due to occluded central line.Patient had a low grade fever raising concern for a central line infection Her blood cultures have grown enterococcus avium and she is on aztreonam.Her central line for TPN has been removed and will be replaced on Tuesday Allergies Allergy/AdvReac Type Severity Reaction Status Date / Time cefepime Allergy Intermediate Rash Verified 09/04/25 21:36 piperacillin [From Zosyn] Allergy Unknown Verified 09/03/25 15:59 tazobactam [From Zosyn] Allergy Unknown Verified 09/03/25 15:59 Home Medications Medication Instructions Recorded Confirmed Type acetaminophen 325 mg tablet 650 mg PO Q4 PRN Mild Pain. 09/03/25 09/03/25 History apixaban 5 mg tablet (Eliquis) 5 mg PO BID 09/03/25 09/03/25 History famotidine 20 mg tablet 20 mg PO QAM 09/03/25 09/03/25 History loperamide 2 mg capsule 4 mg PO TID 09/03/25 09/03/25 History multivitamin with minerals 1 tab PO QAM 09/03/25 09/03/25 History (Multiple Vitamin-Minerals tablet) octreotide acetate 100 mcg/mL 100 mcg IV TID 09/03/25 09/03/25 History injection solution sertraline 100 mg tablet 100 mg PO QAM 09/03/25 09/03/25 History simethicone 80 mg chewable tablet 80 mg PO Q6 PRN 09/03/25 09/03/25 History indigestion/flatulence sodium 35 mEq-potassium 20 mEq-mag 2,000 ml IV .AFTERNOON 09/03/25 09/03/25 History 5 mEq/20 zQ-gvkfzbo-ktxwpwc-acet IV (TPN Electrolytes) Patient History Medical History Mood disorder Paroxysmal A-fib Intra-abdominal abscess Enterocutaneous fistula HFrEF (heart failure with reduced ejection fraction) Surgical History H/O ventral hernia repair Social History Smoking Status: Never smoker Hx Alcohol Use: No Hx Substance Use: No Preferred Language: Indonesian Communication Ability: Effective Enterprise Security Architect Required: No Current Living Situation: Personal Care Facility Other Information That Helps Us Care for You: No Feels Safe at Home: Yes Safety Concerns: Feels Safe At This Time Assistive Devices: Walker and Wheelchair Review of Systems Denies chest pain Physical Exam Awake alert oriented in no respiratory distress Results & Data Vital Signs (Past 12 Hours) Vital Signs Temp Pulse Pulse Resp BP BP Pulse Ox 09/05/25 09:33 36.5 C 62 108/64 96 09/05/25 08:48 36.3 C L 63 123/66 98 09/05/25 08:25 64 16 98/55 L 100 09/05/25 08:20 62 16 118/51 L 100 09/05/25 08:15 58 L 16 110/60 100 09/05/25 08:13 61 16 112/59 L 100 09/05/25 08:05 36.5 C 71 18 130/66 97 09/05/25 07:40 36.5 C 68 20 116/61 96 09/04/25 22:51 36.5 C 65 18 122/65 95 O2 Del Method O2 Flow Rate 09/05/25 09:33 Room Air 09/05/25 08:48 Room Air 09/05/25 08:25 Room Air 0 09/05/25 08:20 Room Air 0 09/05/25 08:15 Oxymask 4 09/05/25 08:13 Oxymask 4 09/05/25 08:05 Room Air 09/05/25 07:40 Room Air 09/04/25 22:51 Room Air Laboratory Results Blood Culture Aerobic Preliminary 09/05/25 Organism 1 Enterococcus avium Sens Sensitivities to Follow Blood Culture Anaerobic Preliminary 09/05/25 Organism 1 Enterococcus avium Sens No Sensitivities to Follow Blood Culture PCR Panel If viewing in EMR, results available under LAB Serology tab. Diagnostic Findings FINDINGS: Study is mildly rotated to the left. Cardiac silhouette is enlarged. Right sub clavian Ywawss-c-Tqex catheter with distal tip noted in the expected location of the mid to inferior aspect of the SVC. Pulmonary vascular congestion with mild interstitial coarsening. Mild blunting of the lateral costophrenic angles. Bones appear grossly intact. IMPRESSION: Status post placement of a right subclavian Rmgope-b-Lmtq catheter. No postprocedural pneumothorax identified.
[2025-09-05] MEDS: diphenhydrAMINE 50 MG/ML VIAL IV PRN (11:35)
--- NOTE | 2025-09-05 12:27 | Pharmacy Report ---
Pharmacy PK ABX Note - Date of Service September 05, 2025 - Assessment and Plan Assessment 09/05/25: * Corral catheter removed today * 1 of 2 blood cultures growing gram-positive cocci in chains, all other cultures negative at this time, MRSA nasal swab positive * Apparent TAY (SCr 1.9, 1.41 mg/dL on admission, unsure of baseline) * ID consulted 09/04/25: * 70 year old F receiving vancomycin/cefepime empirically. Presenting with occluded central line, now with positive blood cultures. 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 Anticipate central line needing to be replaced. ID consulted. Blood cultures preliminary with Gm+ cocci in chains/PCR negative - will await further identification. Plan Vancomycin * Loading dose: 2250 mg IV x 1 * Random vancomycin level this AM of 17.6 mcg/mL * Will continue to dose by random level until renal function stabilizes * vancomycin 750 mg IV x 1 today and recheck vanco level 09/06/25 Pharmacy will continue to follow and will adjust dose/frequency as necessary. Thank you. Pharmacy has transitioned to AUC monitoring for vancomycin. AUC/NAEEM is the preferred PK/PD target and is associated with decreased risk of nephrotoxicity compared to traditional trough targets.
--- NOTE | 2025-09-05 14:05 | Pharmacy Report ---
Pharmacy PN Follow-up Note - Date of Service September 05, 2025 - Subjective Patient is currently on day #1 of PPN in patient on chronic PN as outpatient due to postoperative complications with ventral hernia repair in 12/2024. - Objective Height & Weight (Last Documented) Height 5 ft 6 in Weight 115.3 kg Diet Order(s) 09/05/25 Breakfast Diet Intake & Ouput (24hrs) 09/04/25 09/05/25 09/06/25 06:59 06:59 06:59 Intake Total 1195 / 1195 3357.916 / 3357.916 1097.083 / 1097.083 Output Total 500 / 500 725 / 725 Balance 695 / 695 2632.916 / 2632.916 1097.083 / 1097.083 Selected Laboratory Results 09/05/25 05:51 Sodium 137 Potassium 3.8 Chloride 108 H Carbon Dioxide 22 Anion Gap 7 BUN 53 H Creatinine 1.90 H BUN/Creatinine Ratio 27.9 H Glucose 87 Calcium 7.9 L Phosphorus 3.6 Magnesium 1.8 - Assessment & Plan Assessment: * BP is a 70 year old female who resides at [facility] admitted on 09/03/25 due to occluded central line * Patient on chronic TPN following ventral hernia repair in December 2024 complicated by small bowel perforation, intraabdominal abscess w/ wound dehiscence, and enterocutaneous fistula * Corral catheter removed in OR today with plan for replacement on 09/09/25 * Broad spectrum antibiotics with vancomycin and aztreonam. ID consulted. 1 of 2 blood cultures growing Enterococcus avium. * Labs all mostly within normal limits, triglycerides ordered for tomorrow (09/06/25) * Macronutrient recs provided by nutrition, appreciated. * Outpatient TPN formulation obtained from [facility] * Amino acids 100 g, dextrose 250 g, lipids 35 g * Sodium chloride: 150 mEq * Sodium acetate: 30 mEq * Sodium phosphate: 8 mmol * Potassium acetate: 35 mEq * Magnesium sulfate: 12 mEq * Calcium gluconate: 6 mEq * Tralement4: 1 mL * MVI: 10 mL * Infused over 18 hours with 1 hour ramp up/down period * Peripheral IV site verified by IV team on 09/05 as acceptable for PPN Plan: * For Day #1 of PPN administration, the following will be ordered: * Macronutrients: * Amino Acids: 85 grams/day * Dextrose: 100 grams/day * Lipids: 50 grams/day * Micronutrients: * TPN electrolytes: 20 mL/day Contains 35 mEq Na, 20 mEq K, 4.5 mEq Ca, 5 mEq Mg, 35 mEq Cl, 29.5 mEq Acetate per 20 mL * Sodium phosphate: 12 mMol/day * Sodium chloride: 60 mEq/day * Sodium acetate: 80 mEq/day * Potassium acetate: 40 mEq/day * Magnesium sulfate: 4.06 mEq/day * Multivitamins: 10 mL/day * Trace elements: 1 mL/day * Total volume of 2120 mL will be infused over 24 hours and will provide 1180 kcal/day * Patient is on PPN which has a maximum mOsm/L of 900. Final osmolarity of current solution is 880 mOsm/L. * Labs will be ordered per PN protocol. * Pharmacy will follow and adjust PN orders on a daily basis. Thank you!
--- NOTE | 2025-09-05 14:16 | Hospitalist Progress Note ---
Date of Service September 05, 2025 Assessment & Plan (1) Gram-positive bacteremia: (2) CLABSI (central line-associated bloodstream infection): Plan: Present on admission (3) Occlusion of central line: (4) Acute renal failure superimposed on stage 3 chronic kidney disease: (5) Acute on chronic anemia: (6) Enterocutaneous fistula: (7) Chronic HFrEF (heart failure with reduced ejection fraction): (8) Paroxysmal A-fib: (9) Mood disorder: (10) NSVT (nonsustained ventricular tachycardia): (11) Allergic drug rash due to anti-infective agent: Plan Repeat blood cultures with Corral out, follow results, will need to replace catheter when cultures clear Suspect at this time drug rash may be due to cefepime. Continue Benadryl as needed for pruritus Typically Enterococcus avium typically is sensitive to ampicillin and vancomycin, can consider discontinuing meropenem. Infectious disease consultation is pending. Await recommendations Communication with pharmacy, initiate PPN today, patient can continue with clear liquids Continue other current meds Admission and Anticipated Discharge Date Admission Date: September 04, 2025 Subjective Events of last night noted, patient with diffuse drug rash and pruritus. Last evening presumed to be due to cefepime. Switched to meropenem. Continues with a fair amount of pruritus. Seen after patient had returned from the OR this morning for removal of Corral catheter. Patient denies any chest pain or shortness of breath Physical Exam Physical Exam: Constitutional: Alert, moderate distress due to pruritus HEENT: Mucous membranes moist. Lungs: Clear to auscultation, decreased, no wheezes rales or rhonchi CV: S1-S2, regular Abdomen: Soft, nontender, nondistended, 2 ostomy pouches Extremities: No significant edema Neuro: No focal deficits, generally weak Psych: Cooperative, normal mood Derm: Diffuse macular rash most pronounced on upper arms and upper chest Results & Data Results & Data Vital Signs (Past 12 Hours) Vital Signs Temp Pulse Pulse Resp BP BP Pulse Ox 09/05/25 11:02 36.3 C L 60 18 104/65 97 09/05/25 09:33 36.5 C 62 108/64 96 09/05/25 09:30 09/05/25 08:48 36.3 C L 63 123/66 98 09/05/25 08:25 64 16 98/55 L 100 09/05/25 08:20 62 16 118/51 L 100 09/05/25 08:15 58 L 16 110/60 100 09/05/25 08:13 61 16 112/59 L 100 09/05/25 08:05 36.5 C 71 18 130/66 97 09/05/25 07:40 36.5 C 68 20 116/61 96 O2 Del Method O2 Flow Rate 09/05/25 11:02 Room Air 09/05/25 09:33 Room Air 09/05/25 09:30 Room Air 09/05/25 08:48 Room Air 09/05/25 08:25 Room Air 0 09/05/25 08:20 Room Air 0 09/05/25 08:15 Oxymask 4 09/05/25 08:13 Oxymask 4 09/05/25 08:05 Room Air 09/05/25 07:40 Room Air Diagnostic Findings Reviewed imaging, laboratory and diagnostic studies. Pertinent findings as below. WBC 6.5 Hemoglobin 9.3 Electrolytes stable Creatinine 1.9, stable Blood cultures 1 of 2 sets growing Enterococcus avium, sensitivities pending. (3) Occlusion of central line Encounter type: initial encounter Qualified Code(s): T82.594A - Other mechanical complication of infusion catheter, initial encounter
[2025-09-05] MEDS: CLINOLIPID 20% IV FAT EMULSION 250 ML IV SCH (15:09)
[2025-09-05] MEDS: STOP ORDER ONE (15:10)
[2025-09-05] MEDS ORDERED: DEXTROSE 10% 1,000 ML IV PRN (16:00)
[2025-09-05] MEDS: STOP CLINOLIPID SCH (19:07)
[2025-09-06 09:21] LABS: Anion Gap 6.0 (3-11); Blood Urea Nitrogen 48.0 mg/dl (6-23); Calcium 7.9 mg/dl (8.6-10.3); Carbon Dioxide 23.0 mmol/L (21-32); Chloride 108.0 mmol/L (98-107); Creatinine Clr Calc Pharmacy 38.0 ml/min; Glucose 121.0 mg/dl (70-99(Fasting)); Magnesium 1.7 mg/dl (1.7-2.4); Potassium 3.8 mmol/L (3.5-5.1); Sodium 137.0 mmol/L (136-145); Triglycerides 202.0 mg/dl (0-150)
--- NOTE | 2025-09-06 10:22 | Pharmacy Report ---
Pharmacy PK ABX Note - Date of Service September 06, 2025 - Assessment and Plan Assessment 09/06/25: * 1 of 2 blood cultures growing Enterococcus avium (sensitivities to follow) * SCr mildly improved today (1.9 -> 1.8 mg/dL) 09/05/25: * Corral catheter removed today * 1 of 2 blood cultures growing gram-positive cocci in chains, all other cultures negative at this time, MRSA nasal swab positive * Apparent TAY (SCr 1.9, 1.41 mg/dL on admission, unsure of baseline) * ID consulted 09/04/25: * 70 year old F receiving vancomycin/cefepime empirically. Presenting with occluded central line, now with positive blood cultures. 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 Anticipate central line needing to be replaced. ID consulted. Blood cultures preliminary with Gm+ cocci in chains/PCR negative - will await further identification. Plan Vancomycin * Loading dose: 2250 mg IV x 1 on 09/04, 750 mg IV x 1 on 09/05 * Random vancomycin level this AM of 17.3 mcg/mL * Will order 750 mg IV q24h * Repeat random level ordered for: 09/08/25 or sooner if dramatic improvement in renal function Pharmacy will continue to follow and will adjust dose/frequency as necessary. Thank you. Pharmacy has transitioned to AUC monitoring for vancomycin. AUC/NAEEM is the preferred PK/PD target and is associated with decreased risk of nephrotoxicity compared to traditional trough targets.
[2025-09-06] MEDS: VANCOMYCIN 750 MG in SODIUM CHLORIDE 0.9% 250 ML IV SCH (10:51)
--- NOTE | 2025-09-06 13:50 | Hospitalist Progress Note ---
Date of Service September 06, 2025 Assessment & Plan (1) Gram-positive bacteremia: Plan: Enterococcus avium (2) CLABSI (central line-associated bloodstream infection): Plan: Present on admission (3) Occlusion of central line: (4) Acute renal failure superimposed on stage 3 chronic kidney disease: (5) Acute on chronic anemia: (6) Enterocutaneous fistula: (7) Chronic HFrEF (heart failure with reduced ejection fraction): (8) Paroxysmal A-fib: (9) Mood disorder: (10) NSVT (nonsustained ventricular tachycardia): (11) Allergic drug rash due to anti-infective agent: Plan Patient 70-year-old female on chronic TPN after extensive and complicated surgical history for hernia repair. Presented with occluded Corral catheter and subsequently found to be bacteremic. Corral catheter removed on 09/05/2025 Plan to replace Corral catheter on 09/09/2025 provided surveillance cultures remain sterile. Patient seems to have a significant drug rash reaction. Initially thought due to cefepime, however was persisted after cefepime was discontinued. Concern may be due to the vancomycin which has been continued. Communication with infectious disease, recommending checking CK and starting daptomycin. CPK level within normal range, will start daptomycin Continue PPN while awaiting replacement of Corral catheter Monitor laboratory studies Therapies Will need to get final duration of antibiotic recommendation from infectious disease after cultures finalized Continue ostomy care Anticipate return to [facility] when ready for discharge Admission and Anticipated Discharge Date Admission Date: September 04, 2025 Subjective Patient continues with severe pruritus and rash. No other acute events. Benadryl helped slightly. Physical Exam Physical Exam: Constitutional: Alert, nontoxic HEENT: Mucous membranes moist. Lungs: Clear to auscultation, decreased, no wheezes rales or rhonchi CV: S1-S2, regular Abdomen: Soft, nontender, nondistended, 2 ostomy bags on the abdomen, functioning Extremities: No significant edema Neuro: No focal deficits, generally weak Derm: Diffuse macular rash upper extremities and chest and neck and upper back Psych: Cooperative, normal mood Results & Data Results & Data Vital Signs (Past 12 Hours) Vital Signs Temp Pulse Resp BP Pulse Ox O2 Del Method 09/06/25 11:18 Room Air 09/06/25 08:06 36.4 C L 71 16 123/63 97 Room Air Diagnostic Findings Reviewed imaging, laboratory and diagnostic studies. Pertinent findings as below. Electrolytes stable Creatinine 1.80 Surveillance blood cultures sterile at 24 hours CPK 45 (3) Occlusion of central line Encounter type: initial encounter Qualified Code(s): T82.594A - Other mechanical complication of infusion catheter, initial encounter
[2025-09-06] MEDS: DAPTOmycin 850 MG in SYRINGE 0 ML IV SCH (14:23)
[2025-09-07 06:41] LABS: Hematocrit (blood only) 28.1 % (37.0-47.0); Hemoglobin 9.6 g/dL (12.0-16.0); Mean Corpuscular Hemoglobin 31.4 pg (25.0-34.0); Mean Corpuscular Volume 91.8 fL (80.0-100.0); Platelet Count 212 K/uL (130-400); RDW Standard Deviation 41.1 fL (36.4-46.3); Red Blood Count 3.06 M/uL (4.20-5.40); White Blood Count 10.56 K/ul (4.8-10.8)
[2025-09-07 07:16] LABS: Anion Gap 6.0 (3-11); Blood Urea Nitrogen 46.0 mg/dl (6-23); Calcium 8.2 mg/dl (8.6-10.3); Carbon Dioxide 24.0 mmol/L (21-32); Chloride 104.0 mmol/L (98-107); Creatinine Clr Calc Pharmacy 40.8 ml/min; Glucose 101.0 mg/dl (70-99(Fasting)); Magnesium 1.8 mg/dl (1.7-2.4); Potassium 3.6 mmol/L (3.5-5.1); Sodium 134.0 mmol/L (136-145)
--- NOTE | 2025-09-07 09:11 | Hospitalist Progress Note ---
Date of Service September 07, 2025 Assessment & Plan (1) Gram-positive bacteremia: Plan: Enterococcus avium (2) CLABSI (central line-associated bloodstream infection): Plan: Present on admission (3) Occlusion of central line: (4) Acute renal failure superimposed on stage 3 chronic kidney disease: (5) Acute on chronic anemia: (6) Enterocutaneous fistula: (7) Chronic HFrEF (heart failure with reduced ejection fraction): (8) Paroxysmal A-fib: (9) Mood disorder: (10) NSVT (nonsustained ventricular tachycardia): (11) Allergic drug rash due to anti-infective agent: Plan Per previous provider w/addendum: Patient 70-year-old female on chronic TPN after extensive and complicated surgical history for hernia repair. Presented with occluded Corral catheter and subsequently found to be bacteremic. Corral catheter removed on 09/05/2025 Plan to replace Corral catheter on 09/09/2025 provided surveillance cultures remain sterile. Patient seems to have a significant drug rash reaction. Initially thought due to cefepime, however was persisted after cefepime was discontinued. Concern may be due to the vancomycin which has been continued. Communication with infectious disease, recommending checking CK and starting daptomycin. CPK level within normal range, daptomycin was started Continue PPN while awaiting replacement of Corral catheter Monitor laboratory studies Therapies Will need to get final duration of antibiotic recommendation from infectious disease after cultures finalized Continue ostomy care Anticipate return to [facility] when ready for discharge Admission and Anticipated Discharge Date Admission Date: September 04, 2025 Subjective Patient seen in follow up of bacteremia Currently lying in bed in [facility] Pt's RN at the bedside Pt continues to have rash identified some days ago, no new complaints. No fever, chills, chest pain, shortness of breath. Review of Systems Review of Systems: All systems reviewed & are unremarkable except as noted in Subjective Physical Exam Physical Exam: Constitutional: Alert, nontoxic HEENT: Mucous membranes moist. Lungs: Clear to auscultation, decreased, no wheezes rales or rhonchi CV: S1-S2, regular Abdomen: Soft, nontender, nondistended, 2 ostomy bags on the abdomen, functioning Extremities: No significant edema Neuro: No focal deficits, generally weak Derm: Diffuse macular rash upper extremities and chest and neck and upper back Psych: Cooperative, normal mood Results & Data Results & Data Vital Signs (Past 12 Hours) Vital Signs Temp Pulse Resp BP Pulse Ox O2 Del Method 09/07/25 08:28 Room Air 09/07/25 08:00 36.6 C 93 H 20 119/72 98 Room Air 09/07/25 00:15 36.7 C 83 20 127/69 96 Room Air 09/06/25 21:20 Room Air Laboratory Results 09/07/25 09/07/25 09/06/25 Range/Units 07:48 05:53 20:17 WBC 10.56 (4.8-10.8) K/ul RBC 3.06 L (4.20-5.40) M/uL Hgb 9.6 L (12.0-16.0) g/dL Hct 28.1 L (37.0-47.0) % MCV 91.8 (80.0-100.0) fL MCH 31.4 (25.0-34.0) pg MCHC 34.2 (32.0-36.0) g/dL RDW Std Deviation 41.1 (36.4-46.3) fL RDW Coeff of Hedy 12.3 (11.5-14.5) % Plt Count 212 (130-400) K/uL MPV 10.4 (9.4-12.4) fL Sodium 134 L (136-145) mmol/L Potassium 3.6 (3.5-5.1) mmol/L Chloride 104 (98-107) mmol/L Carbon Dioxide 24 (21-32) mmol/L Anion Gap 6 (3-11) BUN 46 H (6-23) mg/dl Creatinine 1.68 H (0.6-1.2) mg/dl Est Cr Clr Drug Dosing 40.8 ml/min eGFR 32.72 BUN/Creatinine Ratio 27.4 H (10-20) Glucose 101 H (70-99(Fasting)) mg/dl POC Glucose 108 H 144 H (70-99) mg/dl Calcium 8.2 L (8.6-10.3) mg/dl Phosphorus 3.0 (2.5-4.9) mg/dl Magnesium 1.8 (1.7-2.4) mg/dl 09/06/25 Range/Units 14:25 WBC (4.8-10.8) K/ul RBC (4.20-5.40) M/uL Hgb (12.0-16.0) g/dL Hct (37.0-47.0) % MCV (80.0-100.0) fL MCH (25.0-34.0) pg MCHC (32.0-36.0) g/dL RDW Std Deviation (36.4-46.3) fL RDW Coeff of Hedy (11.5-14.5) % Plt Count (130-400) K/uL MPV (9.4-12.4) fL Sodium (136-145) mmol/L Potassium (3.5-5.1) mmol/L Chloride (98-107) mmol/L Carbon Dioxide (21-32) mmol/L Anion Gap (3-11) BUN (6-23) mg/dl Creatinine (0.6-1.2) mg/dl Est Cr Clr Drug Dosing ml/min eGFR BUN/Creatinine Ratio (10-20) Glucose (70-99(Fasting)) mg/dl POC Glucose 111 H (70-99) mg/dl Calcium (8.6-10.3) mg/dl Phosphorus (2.5-4.9) mg/dl Magnesium (1.7-2.4) mg/dl Medications Administered Current Inpatient Medications Acetaminophen (Acetaminophen 500 Mg Tab) 1,000 mg PO Q8H PRN PRN Reason: Pain or Fever Stop: 10/03/25 19:15 Diphenhydramine HCl (Diphenhydramine 50 Mg/Ml Vial) 25 mg IV Q6H PRN PRN Reason: Itching Stop: 10/05/25 11:08 Last Admin: 09/07/25 08:12 Dose: 25 mg Famotidine (Famotidine 20 Mg Tab) 20 mg PO QAM [facility] Stop: 10/04/25 08:59 Last Admin: 09/07/25 08:13 Dose: 20 mg Octreotide Acetate 100 mcg/ (Syringe) 10 mls @ 3 mls/min IV Q8H [facility] Stop: 10/03/25 20:59 Last Admin: 09/07/25 13:19 Dose: 3 mls/min Dextrose (D10w) 1,000 mls @ 0 mls/hr IV .Q0M PRN PRN Reason: protocol (see label comments) Stop: 09/08/25 15:59 Amino Acids 2,124 ml/ (Nutrition (Parenteral)) 2,124 mls @ 83.3 mls/hr IV .Q24H [facility]; Protocol Stop: 09/07/25 15:59 Last Admin: 09/06/25 16:18 Dose: 83.3 mls/hr Daptomycin 850 mg/ Syringe 17 mls @ 8.5 mls/min IV Q24H [facility]; Protocol Stop: 09/20/25 13:59 Last Admin: 09/07/25 13:19 Dose: 8.5 mls/min Fat Emulsion-[place] Oil/Soybean Oil (Clinolipid 20% Iv Fat Emulsion) 250 mls @ 20.8 mls/hr IV .Q12H2M [facility] Stop: 09/08/25 04:01 Amino Acids 2,128 ml/ (Nutrition (Parenteral)) 2,128 mls @ 88.7 mls/hr IV .Q24H [facility]; Protocol Stop: 09/08/25 15:59 Loperamide HCl (Loperamide Hcl 2 Mg Cap) 4 mg PO TID [facility] Stop: 10/03/25 20:59 Last Admin: 09/07/25 13:20 Dose: 4 mg Melatonin (Melatonin 3 Mg Tab) 3 mg PO HS PRN PRN Reason: Insomnia Stop: 10/03/25 19:15 Metoprolol Succinate (Metoprolol Succ 25mg Ext Rel Tab) 25 mg PO QAM [facility] Stop: 10/03/25 19:14 Last Admin: 09/07/25 08:13 Dose: 25 mg Miscellaneous (Stop Clinolipid) 1 each N/A TODAY@04 [facility] Stop: 09/09/25 04:01 Miscellaneous Information (Tpn/Ppn Consult Pharmacy) 1 each N/A UD PRN PRN Reason: consult Stop: 10/04/25 09:05 Multivitamins/Minerals (Cerovite Adv Formula Tab) [facility] [place] Stop: 10/04/25 08:59 Last Admin: 09/07/25 08:13 Dose: 1 tab Ondansetron HCl (Ondansetron Inj 2 Mg/Ml 2 Ml Vial) 4 mg IV Q6H PRN PRN Reason: Nausea Stop: 10/03/25 19:15 Last Admin: 09/03/25 20:36 Dose: 4 mg Sertraline HCl (Sertraline Hcl 100 Mg Tablet) 100 mg PO QAM [facility] Stop: 10/04/25 08:59 Last Admin: 09/07/25 08:13 Dose: 100 mg Simethicone (Simethicone 80 Mg Chew) 80 mg PO Q6 PRN PRN Reason: indigestion/flatulence Stop: 10/03/25 19:15 (3) Occlusion of central line Encounter type: initial encounter Qualified Code(s): T82.594A - Other mechanical complication of infusion catheter, initial encounter
[2025-09-07] MEDS: CLINOLIPID 20% IV FAT EMULSION 250 ML IV SCH (15:35)
[2025-09-07] MEDS: Heparin IV Adult Wt-Based Low-Dose *NO* INITIAL Bolus Protocol IV STA (17:31)
[2025-09-07] MEDS: HEPARIN 25000 UNIT/500 ML D5W 25,000 UNITS/500 ML BAG IV SCH (17:51)
[2025-09-07 18:27] LABS: Hematocrit (blood only) 27.9 % (37.0-47.0); Hemoglobin 9.4 g/dL (12.0-16.0); Immature Granulocytes # (auto) 0.04 K/uL (0.01-0.20); Immature Granulocytes % (auto) 0.4 %; Mean Corpuscular Hemoglobin 31.2 pg (25.0-34.0); Mean Corpuscular Volume 92.7 fL (80.0-100.0); Platelet Count 250 K/uL (130-400); RDW Standard Deviation 42.8 fL (36.4-46.3); Red Blood Count 3.01 M/uL (4.20-5.40); White Blood Count 9.37 K/ul (4.8-10.8)
[2025-09-07 18:36] LABS: INR 1.1 (0.9-1.1); Partial Thromboplastin Time 32 Seconds (21-31); Prothrombin Time 11.8 Seconds (9.0-12.0)
[2025-09-08 00:35] LABS: ANTI-Xa, UFH(UnfractionatedHep < 0.10 IU/ml (0.3-0.7)
[2025-09-08] MEDS: HEPARIN SOD (PORCINE) 1000 UNIT/ML IV STA (01:59)
[2025-09-08] MEDS: STOP CLINOLIPID SCH (04:00)
[2025-09-08 08:56] LABS: Anion Gap 6.0 (3-11); Blood Urea Nitrogen 48.0 mg/dl (6-23); Calcium 8.2 mg/dl (8.6-10.3); Carbon Dioxide 27.0 mmol/L (21-32); Chloride 102.0 mmol/L (98-107); Creatinine Clr Calc Pharmacy 42.6 ml/min; Glucose 108.0 mg/dl (70-99(Fasting)); Magnesium 2.0 mg/dl (1.7-2.4); Potassium 3.5 mmol/L (3.5-5.1); Sodium 135.0 mmol/L (136-145)
[2025-09-08 08:59] LABS: ANTI-Xa, UFH(UnfractionatedHep 0.37 IU/ml (0.3-0.7)
[2025-09-08] MEDS: CETIRIZINE HCL 10 MG TABLET PO SCH (11:02)
--- NOTE | 2025-09-08 13:21 | Hospitalist Progress Note ---
Date of Service September 08, 2025 Assessment & Plan (1) Gram-positive bacteremia: Plan: Enterococcus avium (2) CLABSI (central line-associated bloodstream infection): Plan: Present on admission (3) Occlusion of central line: (4) Acute renal failure superimposed on stage 3 chronic kidney disease: (5) Acute on chronic anemia: (6) Enterocutaneous fistula: (7) Chronic HFrEF (heart failure with reduced ejection fraction): (8) Paroxysmal A-fib: (9) Mood disorder: (10) NSVT (nonsustained ventricular tachycardia): (11) Allergic drug rash due to anti-infective agent: Plan Per previous provider w/addendum: Patient 70-year-old female on chronic TPN after extensive and complicated surgical history for hernia repair. Presented with occluded Corral catheter and subsequently found to be bacteremic. Corral catheter removed on 09/05/2025 Plan to replace Corral catheter on 09/09/2025 provided surveillance cultures remain sterile. Blood cultx posit. for Enterococcus avium Cultx from chest/ catheter - posit for Enterococcus avium and Staph hemolyticus Repeat blood cultx so far negative Patient seems to have a significant drug rash reaction. Initially thought due to cefepime, however was persisted after cefepime was discontinued. Concern may be due to the vancomycin which has been continued. Communication with infectious disease, recommending checking CK and starting daptomycin. CPK level within normal range, daptomycin was started Continue PPN while awaiting replacement of Corral catheter started iv heparin as pt previously on eliquis which has been on hold, will hold heparin at midnight, plan for Corral placement tmrw by vasc. surg. Monitor laboratory studies Therapies Will need to get final duration of antibiotic recommendation from infectious disease after cultures finalized Continue ostomy care Anticipate return to [facility] when ready for discharge Admission and Anticipated Discharge Date Admission Date: September 04, 2025 Subjective Patient seen in follow up of bacteremia Currently lying in bed in [facility] Pt's RN at the bedside Pt continues to have rash identified some days ago, no new complaints. No fever, chills, chest pain, shortness of breath. Physical Exam Physical Exam: Constitutional: Alert, nontoxic HEENT: Mucous membranes moist. Lungs: Clear to auscultation, decreased, no wheezes rales or rhonchi CV: S1-S2, regular Abdomen: Soft, nontender, nondistended, 2 ostomy bags on the abdomen, functioning Extremities: No significant edema Neuro: No focal deficits, generally weak Derm: Diffuse macular rash upper extremities and chest and neck and upper back Psych: Cooperative, normal mood Results & Data Results & Data Vital Signs (Past 12 Hours) Vital Signs Temp Pulse Resp BP Pulse Ox O2 Del Method 09/08/25 08:15 36.9 C 78 18 120/76 100 Room Air 09/08/25 07:45 Room Air Laboratory Results 09/08/25 09/08/25 09/07/25 Range/Units 08:10 08:07 23:48 WBC (4.8-10.8) K/ul RBC (4.20-5.40) M/uL Hgb (12.0-16.0) g/dL Hct (37.0-47.0) % MCV (80.0-100.0) fL MCH (25.0-34.0) pg MCHC (32.0-36.0) g/dL RDW Std Deviation (36.4-46.3) fL RDW Coeff of Hedy (11.5-14.5) % Plt Count (130-400) K/uL MPV (9.4-12.4) fL Immature Gran % (Auto) % Neut % (Auto) % Lymph % (Auto) % [place] % (Auto) % Eos % (Auto) % Baso % (Auto) % Neut # (Auto) (1.40-6.50) K/uL Lymph # (Auto) (1.20-3.40) K/uL [place] # (Auto) (0.11-0.59) K/uL Eos # (Auto) (0.00-0.50) K/uL Baso # (Auto) (0.00-0.20) K/uL Immature Gran # (Auto) (0.01-0.20) K/uL PT (9.0-12.0) Seconds INR (0.9-1.1) APTT (21-31) Seconds PTT Ratio Heparin Anti-Xa, Unfract 0.37 < 0.10 L (0.3-0.7) IU/ml Sodium 135 L (136-145) mmol/L Potassium 3.5 (3.5-5.1) mmol/L Chloride 102 (98-107) mmol/L Carbon Dioxide 27 (21-32) mmol/L Anion Gap 6 (3-11) BUN 48 H (6-23) mg/dl Creatinine 1.61 H (0.6-1.2) mg/dl Est Cr Clr Drug Dosing 42.6 ml/min eGFR 34.44 BUN/Creatinine Ratio 29.8 H (10-20) Glucose 108 H (70-99(Fasting)) mg/dl POC Glucose (70-99) mg/dl Calcium 8.2 L (8.6-10.3) mg/dl Phosphorus 3.2 (2.5-4.9) mg/dl Magnesium 2.0 (1.7-2.4) mg/dl 09/07/25 09/07/25 Range/Units 17:38 15:11 WBC 9.37 (4.8-10.8) K/ul RBC 3.01 L (4.20-5.40) M/uL Hgb 9.4 L (12.0-16.0) g/dL Hct 27.9 L (37.0-47.0) % MCV 92.7 (80.0-100.0) fL MCH 31.2 (25.0-34.0) pg MCHC 33.7 (32.0-36.0) g/dL RDW Std Deviation 42.8 (36.4-46.3) fL RDW Coeff of Hedy 12.8 (11.5-14.5) % Plt Count 250 (130-400) K/uL MPV 10.0 (9.4-12.4) fL Immature Gran % (Auto) 0.4 % Neut % (Auto) 74.7 % Lymph % (Auto) 11.7 % [place] % (Auto) 6.0 % Eos % (Auto) 7.0 % Baso % (Auto) 0.2 % Neut # (Auto) 6.99 H (1.40-6.50) K/uL Lymph # (Auto) 1.10 L (1.20-3.40) K/uL [place] # (Auto) 0.56 (0.11-0.59) K/uL Eos # (Auto) 0.66 H (0.00-0.50) K/uL Baso # (Auto) 0.02 (0.00-0.20) K/uL Immature Gran # (Auto) 0.04 (0.01-0.20) K/uL PT 11.8 (9.0-12.0) Seconds INR 1.1 (0.9-1.1) APTT 32 H (21-31) Seconds PTT Ratio 1.2 Heparin Anti-Xa, Unfract (0.3-0.7) IU/ml Sodium (136-145) mmol/L Potassium (3.5-5.1) mmol/L Chloride (98-107) mmol/L Carbon Dioxide (21-32) mmol/L Anion Gap (3-11) BUN (6-23) mg/dl Creatinine (0.6-1.2) mg/dl Est Cr Clr Drug Dosing ml/min eGFR BUN/Creatinine Ratio (10-20) Glucose (70-99(Fasting)) mg/dl POC Glucose 117 H (70-99) mg/dl Calcium (8.6-10.3) mg/dl Phosphorus (2.5-4.9) mg/dl Magnesium (1.7-2.4) mg/dl Medications Administered Current Inpatient Medications Acetaminophen (Acetaminophen 500 Mg Tab) 1,000 mg PO Q8H PRN PRN Reason: Pain or Fever Stop: 10/03/25 19:15 Cetirizine HCl (Cetirizine Hcl 10 Mg Tablet) 10 mg PO [facility] Stop: 10/08/25 09:29 Last Admin: 09/08/25 11:02 Dose: 10 mg Diphenhydramine HCl (Diphenhydramine 50 Mg/Ml Vial) 25 mg IV Q6H PRN PRN Reason: Itching Stop: 10/05/25 11:08 Last Admin: 09/07/25 21:04 Dose: 25 mg Famotidine (Famotidine 20 Mg Tab) [facility] [place] Stop: 10/04/25 08:59 Last Admin: 09/08/25 08:49 Dose: 20 mg Octreotide Acetate 100 mcg/ (Syringe) 10 mls @ 3 mls/min IV Q8H [facility] Stop: 10/03/25 20:59 Last Admin: 09/08/25 05:21 Dose: 3 mls/min Dextrose (D10w) 1,000 mls @ 0 mls/hr IV .Q0M PRN PRN Reason: protocol (see label comments) Stop: 09/08/25 15:59 Daptomycin 850 mg/ Syringe 17 mls @ 8.5 mls/min IV Q24H [facility]; Protocol Stop: 09/20/25 13:59 Last Admin: 09/07/25 13:19 Dose: 8.5 mls/min Amino Acids 2,128 ml/ (Nutrition (Parenteral)) 2,128 mls @ 88.7 mls/hr IV .Q24H [facility]; Protocol Stop: 09/08/25 15:59 Last Admin: 09/07/25 15:35 Dose: 88.7 mls/hr Heparin Sodium/Dextrose (Heparin 72022 Unit/500 Ml D5w) 25,000 units in 500 mls @ 25 mls/hr IV .Q20H [facility]; Protocol Stop: 10/07/25 17:14 Last Titration: 09/08/25 09:07 Dose: 1,250 units/hr, 25 mls/hr Fat Emulsion-[place] Oil/Soybean Oil (Clinolipid 20% Iv Fat Emulsion) 250 mls @ 20.8 mls/hr IV .Q12H2M [facility] Stop: 09/09/25 04:01 Amino Acids 2,128 ml/ (Nutrition (Parenteral)) 2,128 mls @ 88.7 mls/hr IV .Q24H [facility]; Protocol Stop: 09/09/25 15:59 Loperamide HCl (Loperamide Hcl 2 Mg Cap) 4 mg PO TID [facility] Stop: 10/03/25 20:59 Last Admin: 09/08/25 08:49 Dose: 4 mg Melatonin (Melatonin 3 Mg Tab) 3 mg PO HS PRN PRN Reason: Insomnia Stop: 10/03/25 19:15 Metoprolol Succinate (Metoprolol Succ 25mg Ext Rel Tab) 25 mg PO QAM [facility] Stop: 10/03/25 19:14 Last Admin: 09/08/25 08:51 Dose: 25 mg Miscellaneous (Stop Clinolipid) 1 each N/A TODAY@04 [facility] Stop: 09/09/25 04:01 Last Admin: 09/08/25 04:00 Dose: 1 each Miscellaneous Information (Tpn/Ppn Consult Pharmacy) 1 each N/A UD PRN PRN Reason: consult Stop: 10/04/25 09:05 Multivitamins/Minerals (Cerovite Adv Formula Tab) 1 tab PO QAM [facility] Stop: 10/04/25 08:59 Last Admin: 09/08/25 09:06 Dose: 1 tab Ondansetron HCl (Ondansetron Inj 2 Mg/Ml 2 Ml Vial) 4 mg IV Q6H PRN PRN Reason: Nausea Stop: 10/03/25 19:15 Last Admin: 09/03/25 20:36 Dose: 4 mg Potassium Chloride (Potassium Chloride Crtab 20 Meq Tabcr) 40 meq PO NOW STA Stop: 09/08/25 13:16 Sertraline HCl (Sertraline Hcl 100 Mg Tablet) 100 mg PO QAM [facility] Stop: 10/04/25 08:59 Last Admin: 09/08/25 08:49 Dose: 100 mg Simethicone (Simethicone 80 Mg Chew) 80 mg PO Q6 PRN PRN Reason: indigestion/flatulence Stop: 10/03/25 19:15 (3) Occlusion of central line Encounter type: initial encounter Qualified Code(s): T82.594A - Other mechanical complication of infusion catheter, initial encounter
[2025-09-08] MEDS: POTASSIUM CHLORIDE CRTAB 20 MEQ TABCR PO STA (13:56)
[2025-09-08] MEDS: CLINOLIPID 20% IV FAT EMULSION 250 ML IV SCH (16:23)
[2025-09-08] MEDS: ACETAMINOPHEN 500 MG TAB PO PRN (21:46)
[2025-09-09] MEDS ORDERED: CLINDAMYCIN/D5W 900 MG/50 ML BAG IV SCH (06:00)
[2025-09-09 07:28] LABS: Hematocrit (blood only) 24.6 % (37.0-47.0); Hemoglobin 8.3 g/dL (12.0-16.0); Mean Corpuscular Hemoglobin 31.0 pg (25.0-34.0); Mean Corpuscular Volume 91.8 fL (80.0-100.0); Platelet Count 264 K/uL (130-400); RDW Standard Deviation 41.7 fL (36.4-46.3); Red Blood Count 2.68 M/uL (4.20-5.40); White Blood Count 8.79 K/ul (4.8-10.8)
[2025-09-09 07:50] LABS: ANTI-Xa, UFH(UnfractionatedHep < 0.10 IU/ml (0.3-0.7)
[2025-09-09 07:59] LABS: Anion Gap 6.0 (3-11); Blood Urea Nitrogen 46.0 mg/dl (6-23); Calcium 8.2 mg/dl (8.6-10.3); Carbon Dioxide 29.0 mmol/L (21-32); Chloride 101.0 mmol/L (98-107); Creatinine Clr Calc Pharmacy 48.6 ml/min; Glucose 93.0 mg/dl (70-99(Fasting)); Magnesium 2.0 mg/dl (1.7-2.4); Potassium 3.7 mmol/L (3.5-5.1); Sodium 136.0 mmol/L (136-145)
--- NOTE | 2025-09-09 08:42 | Hospitalist Progress Note ---
Date of Service September 09, 2025 Assessment & Plan (1) Gram-positive bacteremia: Plan: Enterococcus avium (2) CLABSI (central line-associated bloodstream infection): Plan: Present on admission (3) Occlusion of central line: (4) Acute renal failure superimposed on stage 3 chronic kidney disease: (5) Acute on chronic anemia: (6) Enterocutaneous fistula: (7) Chronic HFrEF (heart failure with reduced ejection fraction): (8) Paroxysmal A-fib: (9) Mood disorder: (10) NSVT (nonsustained ventricular tachycardia): (11) Allergic drug rash due to anti-infective agent: Plan Patient 70-year-old female on chronic TPN after extensive and complicated surgical history for hernia repair. Presented with occluded Corral catheter and subsequently found to be bacteremic. Corral catheter removed on 09/05/2025 Replaced Corral catheter today - on 09/09/2025. Blood cultx posit. for Enterococcus avium Cultx from chest/ catheter - posit for Enterococcus avium and Staph hemolyticus Repeat blood cultx so far negative Patient seems to have a significant drug rash reaction. Initially thought due to cefepime, however was persisted after cefepime was discontinued. Concern may be due to the vancomycin which has been continued. Communication with infectious disease, recommending checking CK and starting daptomycin. CPK level within normal range, daptomycin was started Discussed with ID today 09/09 - recommend 2 week abx treatment since line removal/ negative blood cultx (09/05) Continue PPN while awaiting replacement of Corral catheter resume eliquis as Hickmnan placed today Monitor laboratory studies Therapies Continue ostomy care Anticipate return to [facility] when ready for discharge Admission and Anticipated Discharge Date Admission Date: September 04, 2025 Subjective Patient seen in follow up of bacteremia Currently lying in bed in [facility] Pt's RN and wound care nurse present at the bedside and discussed with Pt continues to have rash identified some days ago, no new complaints. No fever, chills, chest pain, shortness of breath. She had Corral line placed today by vascular. Discussed w/ ID - recommend 2 week abx treatment since line removal/ negative blood cultx (09/05) Review of Systems Review of Systems: All systems reviewed & are unremarkable except as noted in Subjective Physical Exam Physical Exam: Constitutional: Alert, nontoxic HEENT: Mucous membranes moist. Lungs: Clear to auscultation, decreased, no wheezes rales or rhonchi CV: S1-S2, regular Abdomen: Soft, nontender, nondistended, ostomy bag on the abdomen, functioning Extremities: No significant edema Neuro: No focal deficits, generally weak Derm: Diffuse macular rash upper extremities and chest and neck and upper back Psych: Cooperative, normal mood Results & Data Results & Data Vital Signs (Past 12 Hours) Vital Signs Temp Pulse Resp BP Pulse Ox O2 Del Method 09/09/25 08:10 36.5 C 68 16 115/74 97 Room Air 09/08/25 22:19 36.4 C L 77 16 106/64 94 Room Air 09/08/25 21:25 Room Air Laboratory Results 09/09/25 09/08/25 09/08/25 Range/Units 07:02 08:10 08:07 WBC 8.79 (4.8-10.8) K/ul RBC 2.68 L (4.20-5.40) M/uL Hgb 8.3 L (12.0-16.0) g/dL Hct 24.6 L (37.0-47.0) % MCV 91.8 (80.0-100.0) fL MCH 31.0 (25.0-34.0) pg MCHC 33.7 (32.0-36.0) g/dL RDW Std Deviation 41.7 (36.4-46.3) fL RDW Coeff of Hedy 12.6 (11.5-14.5) % Plt Count 264 (130-400) K/uL MPV 10.0 (9.4-12.4) fL Heparin Anti-Xa, Unfract < 0.10 L 0.37 (0.3-0.7) IU/ml Sodium 136 135 L (136-145) mmol/L Potassium 3.7 3.5 (3.5-5.1) mmol/L Chloride 101 102 (98-107) mmol/L Carbon Dioxide 29 27 (21-32) mmol/L Anion Gap 6 6 (3-11) BUN 46 H 48 H (6-23) mg/dl Creatinine 1.41 H 1.61 H (0.6-1.2) mg/dl Est Cr Clr Drug Dosing 48.6 42.6 ml/min eGFR 40.38 34.44 BUN/Creatinine Ratio 32.6 H 29.8 H (10-20) Glucose 93 108 H (70-99(Fasting)) mg/dl Calcium 8.2 L 8.2 L (8.6-10.3) mg/dl Phosphorus 3.4 3.2 (2.5-4.9) mg/dl Magnesium 2.0 2.0 (1.7-2.4) mg/dl Medications Administered Current Inpatient Medications Acetaminophen (Acetaminophen 500 Mg Tab) 1,000 mg PO Q8H PRN PRN Reason: Pain or Fever Stop: 10/03/25 19:15 Last Admin: 09/08/25 21:46 Dose: 1,000 mg Cetirizine HCl (Cetirizine Hcl 10 Mg Tablet) 10 mg PO [facility] Stop: 10/08/25 09:29 Last Admin: 09/08/25 11:02 Dose: 10 mg Diphenhydramine HCl (Diphenhydramine 50 Mg/Ml Vial) 25 mg IV Q6H PRN PRN Reason: Itching Stop: 10/05/25 11:08 Last Admin: 09/07/25 21:04 Dose: 25 mg Famotidine (Famotidine 20 Mg Tab) 20 mg PO [facility] Stop: 10/04/25 08:59 Last Admin: 09/08/25 08:49 Dose: 20 mg Octreotide Acetate 100 mcg/ (Syringe) 10 mls @ 3 mls/min IV Q8H [facility] Stop: 10/03/25 20:59 Last Admin: 09/09/25 06:07 Dose: 3 mls/min Daptomycin 850 mg/ Syringe 17 mls @ 8.5 mls/min IV Q24H [facility]; Protocol Stop: 09/20/25 13:59 Last Admin: 09/08/25 14:04 Dose: 8.5 mls/min Heparin Sodium/Dextrose (Heparin 54838 Unit/500 Ml D5w) 25,000 units in 500 mls @ 0 mls/hr IV .Q0M [facility]; Protocol Stop: 10/07/25 17:14 Last Admin: 09/09/25 00:40 Dose: Not Given Amino Acids 2,128 ml/ (Nutrition (Parenteral)) 2,128 mls @ 88.7 mls/hr IV .Q24H [facility]; Protocol Stop: 09/09/25 15:59 Last Admin: 09/08/25 16:21 Dose: 88.7 mls/hr Potassium Chloride (K Fox / Wtr) 10 meq in 100 mls @ 100 mls/hr IV Q1H [facility] Stop: 09/09/25 10:44 Loperamide HCl (Loperamide Hcl 2 Mg Cap) 4 mg PO TID [facility] Stop: 10/03/25 20:59 Last Admin: 09/08/25 21:46 Dose: 4 mg Melatonin (Melatonin 3 Mg Tab) 3 mg PO HS PRN PRN Reason: Insomnia Stop: 10/03/25 19:15 Metoprolol Succinate (Metoprolol Succ 25mg Ext Rel Tab) [facility] [place]: 10/03/25 19:14 Last Admin: 09/08/25 08:51 Dose: 25 mg Miscellaneous Information (Tpn/Ppn Consult Pharmacy) 1 each N/A UD PRN PRN Reason: consult Stop: 10/04/25 09:05 Multivitamins/Minerals (Cerovite Adv Formula Tab) [facility] [place] Stop: 10/04/25 08:59 Last Admin: 09/08/25 09:06 Dose: 1 tab Ondansetron HCl (Ondansetron Inj 2 Mg/Ml 2 Ml Vial) 4 mg IV Q6H PRN PRN Reason: Nausea Stop: 10/03/25 19:15 Last Admin: 09/03/25 20:36 Dose: 4 mg Potassium Chloride (Potassium Chloride Crtab 20 Meq Tabcr) 20 meq PO [facility] Stop: 09/09/25 08:41 Sertraline HCl (Sertraline Hcl 100 Mg Tablet) 100 mg PO [facility] Stop: 10/04/25 08:59 Last Admin: 09/08/25 08:49 Dose: 100 mg Simethicone (Simethicone 80 Mg Chew) 80 mg PO Q6 PRN PRN Reason: indigestion/flatulence Stop: 10/03/25 19:15 (3) Occlusion of central line Encounter type: initial encounter Qualified Code(s): T82.594A - Other mechanical complication of infusion catheter, initial encounter
[2025-09-09] MEDS: POTASSIUM CHLORIDE CRTAB 20 MEQ TABCR PO STA (09:06)
--- NOTE | 2025-09-09 09:36 | History & Physical Bridge Note ---
Date of Service September 09, 2025 History & Physical Bridge Note Patient for insertion of a double lumen smith. I have discussed the risks options and benefits of the procedure with the patient. The patient understands the risks options and benefits and agrees to the procedure. I have examined the patient, reviewed the History & Physical and in the interval since the performance of the History & Physical I have noted the following changes of clinical significance: no changes noted
--- NOTE | 2025-09-09 09:40 | Pre Anesthesia Assessment ---
Date of Service September 09, 2025 Pre Sedation Assessment Vital Signs Temp Pulse Resp BP Pulse Ox O2 Del Method 09/09/25 08:10 36.5 C 68 16 115/74 97 Room Air 09/08/25 22:19 36.4 C L 77 16 106/64 94 Room Air 09/08/25 21:25 Room Air 09/08/25 15:36 36.8 C 65 18 118/72 99 Room Air Cardiovascular RRR, no murmur, no edema Respiratory normal respiratory effort, lungs clear to auscultation Pre-Sedation Airway Assessment Smoking Status: Never smoker Hx Sleep Apnea: No Short, Thick Neck: Yes Thyromental Distance: < 3.5 Finger Breadths Oral Cavity: + WNL Mallampati Class: III ASA: ASA3 NPO Status Date of Last Intake of Fluids: 09/04/25 Time of Last Intake of Fluids: 23:00 Date of Last Intake of Solid Food: 09/04/25 Time of Last Intake of Solid Foods: 23:00 Procedure Planning Contraindications for Sedation: none Current Medications Reviewed: Yes Notes The planned sedation has been discussed with the patient. Informed Consent was obtained. I have identified the patient, determined the appropriateness of sedation and have assessed the patient immediately prior to the procedure. All medicine(s) and interventions are by my order.
[2025-09-09] MEDS: MIDAZOLAM HCL 1 MG/ML 2ML VIAL ONE (10:30)
[2025-09-09] MEDS: LIDOCAINE 1% LOCAL 20 ML VIAL ONE (11:00)
--- NOTE | 2025-09-09 11:04 | Post Operative Brief Note ---
Immediate Post Op Note Date of Surgery September 09, 2025 Pre & Post Diagnosis Operation Date: 09/09/25 10:20 Pre-Op Diagnosis: Lack of venous access Post-Op Diagnosis: Lack of venous access I identified the patient and participated in the time-out.: Yes Procedure Operation Date: 09/09/25 10:20 Actual Procedures p Insertion of Corral Catheter, Right Internal Jugular Approach, Ultrasound Localization of Right Internal Jugular Vein, Fluoroscopy for Positioning, Moderate Sedation Time: 4084-0538(Right) - Matthew Durbin MD Surgeon Matthew Durbin MD Showroom Manager MD [place] Estimated Blood Loss 5 Findings Consistent with Post-Op Diagnosis Anesthesia Type RN Sedation Complications none Disposition Accompanied Patient To Recovery: No Disposition: Recovery Room
--- NOTE | 2025-09-09 11:07 | Operative Report ---
Post Operative Report Pre & Post Diagnosis Operation Date: 09/09/25 10:20 Pre-Op Diagnosis: Port Exchange Post-Op Diagnosis: Port Exchange I identified the patient and participated in the time-out.: Yes Procedure Operation Date: 09/09/25 10:20 Actual Procedures p Insertion of Corral Catheter, Right Internal Jugular Approach, Ultrasound Localization of Right Internal Jugular Vein, Fluoroscopy for Positioning, Moderate Sedation Time: 5340-2321(Right) - Matthew Durbin MD Surgeon Meg Oconnor MD Laboratory Supervisor none Estimated Blood Loss 5 Findings Consistent with Post-Op Diagnosis tunneled line in the SVC on case completion Specimens none Description of Procedure The patient was brought to the operating room and placed in supine position. The right neck was prepped and draped in the standard fashion. Local anesthetic was administered over the planned internal jugular access site and along the planned permcath tunnel site. The right internal jugular vein was accessed via ultrasound guidance using a micropuncture kit and dilated using the included permcath dilator. We then made a small skin incision along the chest approximately 4cm below the clavicle and proceeded to tunnel the permcath, exiting at our access site. The dilator was then exchanged for a larger peel away sheath. The permcath was then fed through the sheath and the peel away sheath was removed. There did appear to be a small kink of the catheter near the access site. We then used a stiff angled glide wire to help straight and position the permcath. We then withdrew our wire and successfully aspirated and flushed both ports. The permcath was secured in 3 places with 3-0 nylon suture and the R IJ access site was closed with dermabond. A sterile dressing was applied. The patient tolerated the procedure well. Dr. Durbin was present for the entirety of the case. I attest to the content of the Intraoperative Record and any orders documented therein. Any exceptions are noted below.
--- NOTE | 2025-09-09 11:08 | Post Anesthesia Assessment ---
Date of Service September 09, 2025 Post Sedation Assessment Vital Signs Temp Pulse Pulse Pulse Resp BP Pulse Ox 09/09/25 11:01 66 18 143/79 H 100 09/09/25 10:56 66 18 138/72 100 09/09/25 10:55 65 18 140/74 100 09/09/25 10:50 61 18 137/77 100 09/09/25 10:45 68 18 135/67 100 09/09/25 10:40 68 18 139/80 100 09/09/25 10:35 65 18 138/77 100 09/09/25 10:30 65 18 152/76 H 100 09/09/25 10:07 36.7 C 100 H 72 20 139/73 100 09/09/25 08:10 36.5 C 68 16 115/74 97 09/08/25 22:19 36.4 C L 77 16 106/64 94 09/08/25 21:25 09/08/25 15:36 36.8 C 65 18 118/72 99 O2 Del Method O2 Flow Rate 09/09/25 11:01 Room Air 0 09/09/25 10:56 Room Air 0 09/09/25 10:55 Oxymask 6 09/09/25 10:50 Oxymask 6 09/09/25 10:45 Oxymask 6 09/09/25 10:40 Oxymask 6 09/09/25 10:35 Oxymask 6 09/09/25 10:30 Oxymask 6 09/09/25 10:07 Room Air 09/09/25 08:10 Room Air 09/08/25 22:19 Room Air 09/08/25 21:25 Room Air 09/08/25 15:36 Room Air Recovery Score Activity: Moves 4 extremities Respiration: Deep Breath/Cough Circulation: +/-20% PreAnes Value Consciousness: Fully Awake Oxygen Saturation: > 92% On Room Air Post Anesthesia Score: 10 Discharge Sedation Level of Care: Fast Track Phase II Post Sedation Plan On clinical assessment, the patient appears to have tolerated the sedation without complications. Patient is recovering as anticipated. Patient will continue to be monitored by nursing and may be discharged when sedation discharge criteria are met per below protocol. Upon Completions of procedure up to 15 minutes continue every 5 minute vital signs and the P.A.R. score; then discharge to a Phase I or Fast Track to Phase II per the following guidelines: * Discharge Patient to appropriate Phase II area if PAR is 8 or greater or return to pre- procedure baseline. The post - procedure orders will be as directed. * If PAR score is less than 8 or not return to pre-procedure baseline then patient will follow Phase I monitoring till PAR is reached for Phase II. The Phase I may be done in procedure room or may call to secure a Phase I area. * If naloxone or flumazenil are used for reversal, hold in Phase I for continued monitoring from when last reversal dose was given for a minimum of 60 minutes or longer pending the nurse and/or physician discretion of patient condition before discharge to Phase II. Please call the Sedation Physician to re-evaluate and complete post-note for discharge to Phase II area. Do NOT discharge from procedure sedation or Phase 1 until post- sedation evaluation note is complete by procedure /sedation MD Sedation Discharge Instructions to be given to the patient at discharge to home.
[2025-09-09] MEDS: POTASSIUM CHLORIDE / WTR 10 MEQ/100 ML PLCT IV SCH (11:59)
[2025-09-09] MEDS: APIXABAN 5 MG TABLET PO SCH (20:26)
[2025-09-10 07:13] LABS: Hematocrit (blood only) 24.5 % (37.0-47.0); Hemoglobin 8.3 g/dL (12.0-16.0); Mean Corpuscular Hemoglobin 31.2 pg (25.0-34.0); Mean Corpuscular Volume 92.1 fL (80.0-100.0); Platelet Count 271 K/uL (130-400); RDW Standard Deviation 42.0 fL (36.4-46.3); Red Blood Count 2.66 M/uL (4.20-5.40); White Blood Count 8.31 K/ul (4.8-10.8)
[2025-09-10 07:58] LABS: Anion Gap 6.0 (3-11); Calcium 8.2 mg/dl (8.6-10.3); Carbon Dioxide 29.0 mmol/L (21-32); Chloride 102.0 mmol/L (98-107); Magnesium 2.1 mg/dl (1.7-2.4); Potassium 4.1 mmol/L (3.5-5.1); Sodium 137.0 mmol/L (136-145)
[2025-09-10 08:04] LABS: Blood Urea Nitrogen 41.0 mg/dl (6-23); Creatinine Clr Calc Pharmacy 58.5 ml/min; Glucose 98.0 mg/dl (70-99(Fasting))
--- NOTE | 2025-09-10 09:02 | Hospitalist Progress Note ---
Date of Service September 10, 2025 Assessment & Plan (1) Gram-positive bacteremia: Plan: Enterococcus avium (2) CLABSI (central line-associated bloodstream infection): Plan: Present on admission (3) Occlusion of central line: (4) Acute renal failure superimposed on stage 3 chronic kidney disease: (5) Acute on chronic anemia: (6) Enterocutaneous fistula: (7) Chronic HFrEF (heart failure with reduced ejection fraction): (8) Paroxysmal A-fib: (9) Mood disorder: (10) NSVT (nonsustained ventricular tachycardia): (11) Allergic drug rash due to anti-infective agent: Plan Patient 70-year-old female on chronic TPN after extensive and complicated surgical history for hernia repair. Presented with occluded Corral catheter and subsequently found to be bacteremic. Corral catheter removed on 09/05/2025 Replaced Corral catheter - on 09/09/2025. Blood cultx posit. for Enterococcus avium Cultx from chest / catheter - posit for Enterococcus avium and Staph hemolyticus Repeat blood cultx so far negative Patient seems to have a significant drug rash reaction. Initially thought due to cefepime, however was persisted after cefepime was discontinued. Concern may be due to the vancomycin which has been continued. Communication with infectious disease, recommending checking CK and starting daptomycin. CPK level within normal range, daptomycin was started Discussed with ID on 09/09 - recommend 2 week abx treatment since line removal/ negative blood cultx (09/05) Continued PPN while awaiting replacement of Corral catheter -> now TPN resumed resumed eliquis Monitor laboratory studies Therapies Continue ostomy care Anticipate return to [facility] when ready for discharge Admission and Anticipated Discharge Date Admission Date: September 04, 2025 Subjective Patient seen in follow up of bacteremia Currently lying in bed in [facility] RN present at the bedside and discussed with Pt's rash much improved/ resolving. No new complaints. No fever, chills, chest pain, shortness of breath. She had Corral line placed yesterday (09/09) by vascular. Discussed w/ ID - recommend 2 week abx treatment since line removal/ negative blood cultx (since 09/05) Review of Systems Review of Systems: All systems reviewed & are unremarkable except as noted in Subjective Physical Exam Physical Exam: Constitutional: Alert, nontoxic HEENT: Mucous membranes moist. Lungs: Clear to auscultation, decreased, no wheezes rales or rhonchi CV: S1-S2, regular Abdomen: Soft, nontender, nondistended, ostomy bag on the abdomen, functioning Extremities: No significant edema Neuro: No focal deficits, generally weak Derm: Diffuse macular rash upper extremities and chest and neck and upper back much improved now/resolving Psych: Cooperative, normal mood Results & Data Results & Data Vital Signs (Past 12 Hours) Vital Signs Temp Pulse Resp BP BP Pulse Ox O2 Del Method 09/10/25 08:07 36.4 C L 69 16 132/80 96 Room Air 09/09/25 23:27 36.8 C 78 18 131/80 93 Room Air Laboratory Results 09/10/25 Range/Units 06:42 WBC 8.31 (4.8-10.8) K/ul RBC 2.66 L (4.20-5.40) M/uL Hgb 8.3 L (12.0-16.0) g/dL Hct 24.5 L (37.0-47.0) % MCV 92.1 (80.0-100.0) fL MCH 31.2 (25.0-34.0) pg MCHC 33.9 (32.0-36.0) g/dL RDW Std Deviation 42.0 (36.4-46.3) fL RDW Coeff of Hedy 12.8 (11.5-14.5) % Plt Count 271 (130-400) K/uL MPV 9.7 (9.4-12.4) fL Sodium 137 (136-145) mmol/L Potassium 4.1 (3.5-5.1) mmol/L Chloride 102 (98-107) mmol/L Carbon Dioxide 29 (21-32) mmol/L Anion Gap 6 (3-11) BUN 41 H (6-23) mg/dl Creatinine 1.18 (0.6-1.2) mg/dl Est Cr Clr Drug Dosing 58.5 ml/min eGFR 50.00 BUN/Creatinine Ratio 34.7 H (10-20) Glucose 98 (70-99(Fasting)) mg/dl Calcium 8.2 L (8.6-10.3) mg/dl Phosphorus 3.8 (2.5-4.9) mg/dl Magnesium 2.1 (1.7-2.4) mg/dl Medications Administered Current Inpatient Medications Acetaminophen (Acetaminophen 500 Mg Tab) 1,000 mg PO Q8H PRN PRN Reason: Pain or Fever Stop: 10/03/25 19:15 Last Admin: 09/10/25 08:12 Dose: 1,000 mg Apixaban (Apixaban 5 Mg Tablet) 5 mg PO BID [facility] Stop: 10/09/25 20:59 Last Admin: 09/10/25 08:08 Dose: 5 mg Cetirizine HCl (Cetirizine Hcl 10 Mg Tablet) 10 mg PO QAM [facility] Stop: 10/08/25 09:29 Last Admin: 09/10/25 08:09 Dose: 10 mg Diphenhydramine HCl (Diphenhydramine 50 Mg/Ml Vial) 25 mg IV Q6H PRN PRN Reason: Itching Stop: 10/05/25 11:08 Last Admin: 09/07/25 21:04 Dose: 25 mg Famotidine (Famotidine 20 Mg Tab) 20 mg PO QAM [facility] Stop: 10/04/25 08:59 Last Admin: 09/10/25 08:08 Dose: 20 mg Heparin Sodium (Beef Lung) (Heparin 10 Unit/Ml 5 Ml Flush) 5 ml FLUSH PRN PRN PRN Reason: Flush Stop: 10/10/25 04:56 Octreotide Acetate 100 mcg/ (Syringe) 10 mls @ 3 mls/min IV Q8H [facility] Stop: 10/03/25 20:59 Last Admin: 09/10/25 05:09 Dose: 3 mls/min Daptomycin 850 mg/ Syringe 17 mls @ 8.5 mls/min IV Q24H [facility]; Protocol Stop: 09/20/25 13:59 Last Admin: 09/09/25 13:48 Dose: 8.5 mls/min Amino Acids 2,128 ml/ (Nutrition (Parenteral)) 2,128 mls @ 88.7 mls/hr IV .Q24H [facility]; Protocol Stop: 09/10/25 15:59 Last Admin: 09/09/25 18:07 Dose: 88.7 mls/hr Loperamide HCl (Loperamide Hcl 2 Mg Cap) 4 mg PO TID [facility] Stop: 10/03/25 20:59 Last Admin: 09/10/25 08:08 Dose: 4 mg Melatonin (Melatonin 3 Mg Tab) 3 mg PO HS PRN PRN Reason: Insomnia Stop: 10/03/25 19:15 Metoprolol Succinate (Metoprolol Succ 25mg Ext Rel Tab) [facility] [place]: 10/03/25 19:14 Last Admin: 09/10/25 08:09 Dose: 25 mg Miscellaneous Information (Tpn/Ppn Consult Pharmacy) 1 each N/A UD PRN PRN Reason: consult Stop: 10/04/25 09:05 Multivitamins/Minerals (Cerovite Adv Formula Tab) 1 tab PO [facility] Stop: 10/04/25 08:59 Last Admin: 09/10/25 08:09 Dose: 1 tab Ondansetron HCl (Ondansetron Inj 2 Mg/Ml 2 Ml Vial) 4 mg IV Q6H PRN PRN Reason: Nausea Stop: 10/03/25 19:15 Last Admin: 09/03/25 20:36 Dose: 4 mg Oxycodone HCl (Oxycodone Hcl Ir 5 Mg Tab (Immediate Release)) 2.5 mg PO Q3H PRN PRN Reason: Pain Stop: 09/23/25 17:38 Last Admin: 09/09/25 20:25 Dose: 2.5 mg Sertraline HCl (Sertraline Hcl 100 Mg Tablet) 100 mg PO [facility] Stop: 10/04/25 08:59 Last Admin: 09/10/25 08:09 Dose: 100 mg Simethicone (Simethicone 80 Mg Chew) 80 mg PO Q6 PRN PRN Reason: indigestion/flatulence Stop: 10/03/25 19:15 (3) Occlusion of central line Encounter type: initial encounter Qualified Code(s): T82.594A - Other mechanical complication of infusion catheter, initial encounter
--- NOTE | 2025-09-10 15:07 | Pharmacy Report ---
Pharmacy PN Follow-up Note - Date of Service September 10, 2025 - Subjective Patient is currently on day #6 of PN. She is on chronic TPN s/p ventral hernia repair in December 2024 complicated by small bowel perforation, intraabdominal abscess w/ wound dehiscence, and enterocutaneous fistula - Objective Height & Weight (Last Documented) Height 5 ft 6 in Weight 117 kg Diet Order(s) 09/09/25 Lunch Diet Intake & Ouput (24hrs) 09/09/25 09/10/25 09/11/25 06:59 06:59 06:59 Intake Total 2909.500 / 2909.500 2328.000 / 2328.000 Output Total 3150 / 3150 Balance 2909.500 / 2909.500 -822.000 / -822.000 Selected Laboratory Results 09/10/25 06:42 Sodium 137 Potassium 4.1 Chloride 102 Carbon Dioxide 29 Anion Gap 6 BUN 41 H Creatinine 1.18 BUN/Creatinine Ratio 34.7 H Glucose 98 Calcium 8.2 L Phosphorus 3.8 Magnesium 2.1 - Assessment & Plan Assessment: * Patient had central access placed on 09/09/25 (luis). Will transition PPN to TPN today and advance to macronutrient goals. * Will attempt to match home TPN formulation as closely as possible (see formula below). Outpatient TPN formulation obtained from [facility] * Amino acids 100 g, dextrose 250 g, lipids 35 g * Sodium chloride: 150 mEq * Sodium acetate: 30 mEq * Sodium phosphate: 8 mmol * Potassium acetate: 35 mEq * Magnesium sulfate: 12 mEq * Calcium gluconate: 6 mEq * Tralement4: 1 mL * MVI: 10 mL * Infused over 18 hours with 1 hour ramp up/down period Plan: * Day #6 of PN administration - transition to TPN today * Macronutrients: * Amino Acids: 134 grams/day * Dextrose: 235 grams/day * Lipids: 50 grams/day five days per week (no lipids on Tue and Tue) * Micronutrients: * TPN electrolytes: 20 mL/day Contains 35 mEq Na, 20 mEq K, 4.5 mEq Ca, 5 mEq Mg, 35 mEq Cl, 29.5 mEq Acetate per 20 mL * Sodium phosphate: 15 mMol/day * Sodium chloride: 100 mEq/day * Sodium acetate: 20 mEq/day * Potassium acetate: 40 mEq/day * Magnesium sulfate: 8.12 mEq/day * Multivitamins: 10 mL/day * Trace elements: 1 mL/day * Total volume of 1788 mL will be infused over 18 hours and will provide 1837 kcal/day * Labs will be ordered per PN protocol. Pharmacy will follow and adjust PN orders on a daily basis. Thank you!
[2025-09-10] MEDS ORDERED: CENTRAL TPN IV SCH (16:00)
[2025-09-10] MEDS ORDERED: [UNRECOGNIZED DRUG - OTHER] IV SCH (16:00)
[2025-09-10] MEDS: CLINOLIPID 20% IV FAT EMULSION 250 ML IV SCH (23:54)
[2025-09-11 07:26] LABS: Alanine Aminotransferase 15.0 U/L (7-52); Alkaline Phosphatase 61.0 U/L (34-104); Anion Gap 6.0 (3-11); Bilirubin,Total 0.6 mg/dl (0.2-1.0); Blood Urea Nitrogen 41.0 mg/dl (6-23); Calcium 8.3 mg/dl (8.6-10.3); Carbon Dioxide 32.0 mmol/L (21-32); Chloride 101.0 mmol/L (98-107); Creatinine Clr Calc Pharmacy 53.9 ml/min; Glucose 111.0 mg/dl (70-99(Fasting)); Magnesium 2.0 mg/dl (1.7-2.4); Potassium 4.1 mmol/L (3.5-5.1); Sodium 139.0 mmol/L (136-145); Triglycerides 179.0 mg/dl (0-150)
[2025-09-11] MEDS: STOP CLINOLIPID SCH (11:26)
--- NOTE | 2025-09-11 13:54 | Hospitalist Progress Note ---
Date of Service September 11, 2025 Assessment & Plan (1) Gram-positive bacteremia: Plan: Enterococcus avium (2) CLABSI (central line-associated bloodstream infection): Plan: Present on admission (3) Occlusion of central line: (4) Acute renal failure superimposed on stage 3 chronic kidney disease: (5) Acute on chronic anemia: (6) Enterocutaneous fistula: (7) Chronic HFrEF (heart failure with reduced ejection fraction): (8) Paroxysmal A-fib: (9) Mood disorder: (10) NSVT (nonsustained ventricular tachycardia): (11) Allergic drug rash due to anti-infective agent: Plan Patient 70-year-old female on chronic TPN after extensive and complicated surgical history for hernia repair. Presented with occluded Corral catheter and subsequently found to be bacteremic. #Bacteremia -Corral catheter removed on 09/05/2025 -Replaced Corral catheter - on 09/09/2025. -Blood cultx posit. for Enterococcus avium -Cultx from chest / catheter - posit for Enterococcus avium and Staph hemolyticus -Repeat blood cultx so far negative Patient seems to have a significant drug rash reaction. Initially thought due to cefepime, however was persisted after cefepime was discontinued. Concern may be due to the vancomycin which has been continued. Communication with infectious disease, recommending checking CK and starting daptomycin. CPK level within normal range, daptomycin was started Plan -Dapto through 09/18 per ID -Medically ready for DC back to SNF #CKD3 -At baseline -Avoid nephrotoxic agents if possible #pAfib -Rate controlled on toprol -Continue eliquis for stroke prophylaxis #HFpEF -Euvolemic -Not on diuretic #Ventral hernia repair -complicated by small bowel perforation, intraabdominal abscess with wound dehiscence and enterocutaneous fistula on TPN -Continue TPN upon discharge -F/u with her surgeon on DC I spent a total of 53 minutes coordinating, documenting, and providing care for this patient excluding time spent in the performance of separately billed services. This included personally reviewing all current laboratories and imaging studies, medical reconciliation, outpatient chart review and discussion with specialists Admission and Anticipated Discharge Date Admission Date: September 04, 2025 Subjective Feeling well this morning. seen in room. she denies any complaints. Patient denies F/C, CP, palpitations, SOB, dyspnea, abd pain, N/V/D Physical Exam Physical Exam: Vitals and labs reviewed General: Well appearing, NAD HEENT: EOMI, PERRLA Neck: Supple Cardiac: RRR no rubs gallops or murmurs Lungs: CTA no rhonchi wheezing or rales Abd: S NT ND BS positive ostomy bag present. : No vazquez MSK: Full ROM. No obvious deformities Ext: No Edema cyanosis Skin: Warm, Dry Neuro: AOx3 No focal deficits. Psych: Normal Mood Results & Data Results & Data Vital Signs (Past 12 Hours) Vital Signs Temp Pulse Resp BP Pulse Ox O2 Del Method 09/11/25 08:35 Room Air 09/11/25 07:33 36.6 C 64 16 132/65 95 Room Air Laboratory Results Abnormal lab results 09/11/25 Range/Units 06:27 BUN 41 H (6-23) mg/dl Creatinine 1.28 H (0.6-1.2) mg/dl BUN/Creatinine Ratio 32.0 H (10-20) Glucose 111 H (70-99(Fasting)) mg/dl Calcium 8.3 L (8.6-10.3) mg/dl Triglycerides 179 H (0-150) mg/dl (3) Occlusion of central line Encounter type: initial encounter Qualified Code(s): T82.594A - Other mechanical complication of infusion catheter, initial encounter
[2025-09-11] MEDS: MELATONIN 3 MG TAB PO PRN (21:30)
[2025-09-12] MEDS: CLINOLIPID 20% IV FAT EMULSION 250 ML IV SCH (00:07)
[2025-09-12 08:24] LABS: Anion Gap 6.0 (3-11); Blood Urea Nitrogen 49.0 mg/dl (6-23); Calcium 8.1 mg/dl (8.6-10.3); Carbon Dioxide 28.0 mmol/L (21-32); Chloride 103.0 mmol/L (98-107); Creatinine Clr Calc Pharmacy 58.9 ml/min; Glucose 98.0 mg/dl (70-99(Fasting)); Magnesium 1.9 mg/dl (1.7-2.4); Potassium 3.9 mmol/L (3.5-5.1); Sodium 137.0 mmol/L (136-145)
[2025-09-12] MEDS: STOP CLINOLIPID SCH (10:40)
--- NOTE | 2025-09-12 11:39 | Hospitalist Progress Note ---
Date of Service September 12, 2025 Assessment & Plan (1) Gram-positive bacteremia: Plan: Enterococcus avium (2) CLABSI (central line-associated bloodstream infection): Plan: Present on admission (3) Occlusion of central line: (4) Acute renal failure superimposed on stage 3 chronic kidney disease: (5) Acute on chronic anemia: (6) Enterocutaneous fistula: (7) Chronic HFrEF (heart failure with reduced ejection fraction): (8) Paroxysmal A-fib: (9) Mood disorder: (10) NSVT (nonsustained ventricular tachycardia): (11) Allergic drug rash due to anti-infective agent: Plan Patient 70-year-old female on chronic TPN after extensive and complicated surgical history for hernia repair. Presented with occluded Corral catheter and subsequently found to be bacteremic. #Bacteremia -Corral catheter removed on 09/05/2025 -Replaced Corral catheter - on 09/09/2025. -Blood cultx posit. for Enterococcus avium -Cultx from chest / catheter - posit for Enterococcus avium and Staph hemolyticus -Repeat blood cultx so far negative Patient seems to have a significant drug rash reaction. Initially thought due to cefepime, however was persisted after cefepime was discontinued. Concern may be due to the vancomycin which has been continued. Communication with infectious disease, recommending checking CK and starting daptomycin. CPK level within normal range, daptomycin was started Plan -Dapto through 09/18 per ID -Medically ready for DC back to SNF if ostomy bag stops leaking #CKD3 -At baseline -Avoid nephrotoxic agents if possible #pAfib -Rate controlled on toprol -Continue eliquis for stroke prophylaxis #HFpEF -Euvolemic -Not on diuretic #Ventral hernia repair -complicated by small bowel perforation, intraabdominal abscess with wound dehiscence and enterocutaneous fistula on TPN -Continue TPN upon discharge -Her ostomy is leaking today, wound care to evaluate -F/u with her surgeon on DC I spent a total of 45 minutes coordinating, documenting, and providing care for this patient excluding time spent in the performance of separately billed services. This included personally reviewing all current laboratories and imaging studies, medical reconciliation, outpatient chart review and discussion with specialists Admission and Anticipated Discharge Date Admission Date: September 04, 2025 Subjective Feeling well this morning. seen in room. she denies any complaints other than her ostomy is leaking Patient denies F/C, CP, palpitations, SOB, dyspnea, abd pain, N/V/D Physical Exam Physical Exam: Vitals and labs reviewed General: Well appearing, NAD HEENT: EOMI, PERRLA Neck: Supple Cardiac: RRR no rubs gallops or murmurs Lungs: CTA no rhonchi wheezing or rales Abd: S NT ND BS positive ostomy bag present. : No vazquez MSK: Full ROM. No obvious deformities Ext: No Edema cyanosis Skin: Warm, Dry Neuro: AOx3 No focal deficits. Psych: Normal Mood Results & Data Results & Data Vital Signs (Past 12 Hours) Vital Signs O2 Del Method 09/12/25 08:06 Room Air Laboratory Results Abnormal lab results 09/12/25 Range/Units 06:24 BUN 49 H (6-23) mg/dl BUN/Creatinine Ratio 41.5 H (10-20) Calcium 8.1 L (8.6-10.3) mg/dl (3) Occlusion of central line Encounter type: initial encounter Qualified Code(s): T82.594A - Other mechanical complication of infusion catheter, initial encounter
[2025-09-12 14:26] LABS: Creatine Kinase 71.0 U/L (26-192)
[2025-09-13] MEDS: CLINOLIPID 20% IV FAT EMULSION 250 ML IV SCH (00:12)
[2025-09-13 07:22] VITALS: BP 124/78; PULSE 61; RESP 16; TEMP 97.9; O2SAT 97
--- NOTE | 2025-09-13 10:30 | Discharge Summary ---
Discharge Summary Date of Service September 13, 2025 Principal Dx & Hospital Course #1 = Principal Diagnosis (1) Gram-positive bacteremia: Enterococcus avium (2) CLABSI (central line-associated bloodstream infection): Present on admission (3) Occlusion of central line: (4) Acute renal failure superimposed on stage 3 chronic kidney disease: (5) Acute on chronic anemia: (6) Enterocutaneous fistula: (7) Chronic HFrEF (heart failure with reduced ejection fraction): (8) Paroxysmal A-fib: (9) Mood disorder: (10) NSVT (nonsustained ventricular tachycardia): (11) Allergic drug rash due to anti-infective agent: Plan Patient 70-year-old female on chronic TPN after extensive and complicated surgical history for hernia repair. Presented with occluded Smith catheter and subsequently found to be bacteremic. Blood cultx posit. for Enterococcus avium. Cultx from chest / catheter - posit for Enterococcus avium and Staph hemolyticus. ID was consulted. Started on empiric cefepime and vanc but developed a possible drug reaction from one of them and switched to daptomycin. Smith catheter was removed on 09/09 and replaced with another smith on 09/09. Home TPN was resumed and tolerated without issue. Repeat blood cultures negative. She is feeling well today and is eager for discharge. vitals and labs are stable for dc to snf today. Daptomycin through 09/18 #Bacteremia -Smith catheter removed on 09/05/2025 -Replaced Smith catheter - on 09/09/2025. -Blood cultx posit. for Enterococcus avium -Cultx from chest / catheter - posit for Enterococcus avium and Staph hemolyticus -Repeat blood cultx so far negative #CKD3 -At baseline -Avoid nephrotoxic agents if possible #pAfib -Rate controlled on toprol -Continue eliquis for stroke prophylaxis #HFpEF -Euvolemic -Not on diuretic #Ventral hernia repair -complicated by small bowel perforation, intraabdominal abscess with wound dehiscence and enterocutaneous fistula on TPN -Continue TPN upon discharge -Her ostomy is leaking today, wound care to evaluate -F/u with her surgeon on DC I spent a total of 41 minutes coordinating, documenting, and providing care for this patient excluding time spent in the performance of separately billed services. This included personally reviewing all current laboratories and imaging studies, medical reconciliation, outpatient chart review and discussion with specialists Notes For Next Care Provider Medication Changes From Visit Daptomycin through 09/18 Admission HPI Per Admitting Provider This is a 70yo F with PMH of HFrEF, paroxysmal A fib on Eliquis, CKD III, h/o ventral hernia repair in December 2024 at outside hospital complicated by small bowel perforation, intraabdominal abscess with wound dehiscence and enterocutaneous fistula on TPN, mood disorder and other medical problems listed below who was sent in from [facility] due to occluded central line. Patient became nauseated last evening and had one vomiting episode. Also endorses a low grade fever last evening. Ostomy site is leaking some, which is new. Tolerates clear liquids and then has additional nutritional support with TPN but staff at [facility] has been having difficulty administering PTN but to clotting of line. No lightheadedness, headache, CP, SOB, abd pain, dysuria. Took AM meds without issue. Patient now following with [facility] - last seen 08/07/25 for management of enterocutaneous fistula. Discussed surgical repair but due to present condition, body habitus and deconditioned state, would want to optimize physician condition before considering further surgery and optimized nutritional state. Discharge Exam Vitals and labs reviewed General: Well appearing, NAD HEENT: EOMI, PERRLA Neck: Supple Cardiac: RRR no rubs gallops or murmurs Lungs: CTA no rhonchi wheezing or rales Abd: S NT ND BS positive ostomy bag present. no leaking : No vazquez MSK: Full ROM. No obvious deformities Ext: No Edema cyanosis Skin: Warm, Dry Neuro: AOx3 No focal deficits. Psych: Normal Mood Updated Medication List Medication Instructions Recorded Confirmed Type acetaminophen 325 mg tablet 650 mg PO Q4 PRN Mild Pain. 09/03/25 09/03/25 History apixaban 5 mg tablet (Eliquis) 5 mg PO BID 09/03/25 09/03/25 History famotidine 20 mg tablet 20 mg PO QAM 09/03/25 09/03/25 History loperamide 2 mg capsule 4 mg PO TID 09/03/25 09/03/25 History multivitamin with minerals 1 tab PO QAM 09/03/25 09/03/25 History (Multiple Vitamin-Minerals tablet) octreotide acetate 100 mcg/mL 100 mcg IV TID 09/03/25 09/03/25 History injection solution sertraline 100 mg tablet 100 mg PO QAM 09/03/25 09/03/25 History simethicone 80 mg chewable tablet 80 mg PO Q6 PRN 09/03/25 09/03/25 History indigestion/flatulence sodium 35 mEq-potassium 20 mEq-mag 2,000 ml IV .AFTERNOON 09/03/25 09/03/25 History 5 mEq/20 lF-xegdqmz-ewrofef-acet IV (TPN Electrolytes) metoprolol succinate 25 mg 25 mg PO QAM 30 days #30 tabs 09/13/25 Rx tablet,extended release 24 hr Hospital Stay Data Consultations 09/03/25 15:48 ED Decision to Admit Stat 09/03/25 16:17 Consult Vascular Surgery Routine 09/04/25 08:41 Consult Infectious Diseases Routine Procedures Performed Operation Date: 09/09/25 10:20 Actual Procedures p Insertion of Smith Catheter, Right Internal Jugular Approach, Ultrasound Localization of Right Internal Jugular Vein, Fluoroscopy for Positioning, Moderate Sedation Time: 3121-1355(Right) - Matthew Durbin MD Diagnostic Imagining Performed 09/04/25 09:47 US venous duplex arm [US venous doppler UE BI] Routine 09/09/25 07:17 EV cvc insrt tunnel wo prt/pearl glue operator Routine US EV guide vascular access Routine Pending Results Patient Have Any Pending Studies at Discharge: No Discharge Instructions Given to Patient (Per Discharging Provider) Complete daptomycin through 09/18. Continue TPN per prior order. please follow up with your general surgeon Total Time Total Time Spent Total Time Spent (In Minutes): 41
== END 2025-09-13 16:12 | DRG 315 ==
LOC: ED 11:56 → EDINP 11:56 → SUATTDRO 16:41 → 2N 21:36 → SUATTDRO 09-04 08:39 → 3W 09-07 21:16